=== PATIENT | female | born 1950 | race Caucasian/White ===

== ENCOUNTER 2018-03-24 12:34 | Emergency (ER) | payer OTHER ==
[~2018-03-24] VITALS: Ht 175.3 cm; Wt 90.7 kg
[~2018-03-24 12:34] MED LIST: METF-370 PO
[2018-03-24 14:05] LABS: Basophils # (auto) 0.1 uL; Eosinophils # (auto) 0.2 uL; Eosinophils % (auto) 3.4 % (0.0-7.0); Lymphocytes # (auto) 1.6 uL; Lymphocytes % (auto) 25.3 % (10.0-50.0); Mean Corpuscular Hemoglobin 28.4 pg (28.0-32.0); Mean Corpuscular Hgb Conc. 34.1 g/dL (32.0-36.0); Mean Corpuscular Volume 83.2 fL (80.0-100.0); Monocytes # (auto) 0.4 uL; Monocytes % (auto) 6.3 % (0.0-12.0); Nucleated Red Blood Cells % 0.1 %; Red Blood Cells 4.57 10^6/uL (4.0-5.20); Red Cell Distribution Width 13.2 % (11.8-14.3); White Blood Cell 6.2 10^3/uL (4.4-10.8)
[2018-03-24 14:34] LABS: INR 0.93 (0.9-1.15); Partial Thromboplastin Time 24.7 sec (23.78-33.04)
[2018-03-24 15:20] LABS: Platelet Count (auto) 111 10^3/uL (140-450)
[2018-03-24 17:34] VITALS: BP 134/77
== END 2018-03-24 17:35 | disposition home or self-care (01) ==
LOC: EDBD 12:34 → ER 12:34
DX: R04.0 Epistaxis (principal); E11.9 Type 2 diabetes mellitus without complications; E78.5 Hyperlipidemia, unspecified; I10 Essential (primary) hypertension; Z88.1 Allergy status to other antibiotic agents; Z88.0 Allergy status to penicillin; Z88.6 Allergy status to analgesic agent; Z90.49 Acquired absence of other specified parts of digestive tract
CPT/HCPCS: 36415; 70486; 85025; 85610; 85730

== ENCOUNTER 2020-12-13 18:10 | Inpatient (IN) | payer OTHER ==
[~2020-12-13] VITALS: Ht 165.1 cm; Wt 92.2 kg
[2020-12-13 19:41] LABS: Albumin 3.3 g/dL (3.4-5.0); Anion Gap 8 (5-15); Blood Urea Nitrogen 21 mg/dL (7-18); Calcium 9.2 mg/dL (8.5-10.1); Carbon Dioxide 26 mmol/L (21-32); Chloride 104 mmol/L (98-107); Glucose 191 mg/dL (74-106); Potassium 3.5 mmol/L (3.5-5.1); Sodium 138 mmol/L (136-145)
[2020-12-13 19:43] LABS: INR 1.01 (0.9-1.15)
[2020-12-13 19:49] LABS: Alanine Aminotransferase 25 U/L (13-56); Alkaline Phosphatase 103 U/L (45-117); Aspartate Aminotransferase 15 U/L (15-37); Bilirubin, Total 0.8 mg/dL (0.2-1.0); GFR African American 67 mL/min; GFR Non-African American 55 mL/min; Total Protein 7.4 g/dL (6.4-8.2)
[2020-12-13] MEDS ORDERED: ASPirin 325 MG TAB PO ONE (20:45)
[2020-12-13 21:08] LABS: Basophils # (auto) 0.1 10 ^3/uL (0-0.2); Basophils % (auto) 1.2 % (0.0-2.0); Eosinophils # (auto) 0.2 10 ^3/uL (0-0.8); Eosinophils % (auto) 2.6 % (0.0-7.0); Hematocrit 37.7 % (36.0-46.0); Hemoglobin 13.1 g/dL (12.2-16.2); Lymphocytes # (auto) 2.1 10 ^3/uL (0.4-5.4); Lymphocytes % (auto) 30.4 % (10.0-50.0); Mean Corpuscular Hemoglobin 28.6 pg (28.0-32.0); Mean Corpuscular Hgb Conc. 34.7 g/dL (32.0-36.0); Mean Corpuscular Volume 82.4 fL (80.0-100.0); Monocytes # (auto) 0.5 10 ^3/uL (0-1.3); Monocytes % (auto) 7.5 % (0.0-12.0); Neutrophils # (auto) 4.1 10 ^3/uL (1.6-8.6); Neutrophils % (auto) 58.3 % (37.0-80.0); Nucleated Red Blood Cells % 0.1 %; Platelet Count (auto) 123 10^3/uL (140-450); Red Blood Cells 4.58 10^6/uL (4.0-5.20); Red Cell Distribution Width 13.3 % (11.8-14.3); White Blood Cell 7.1 10^3/uL (4.4-10.8)
[2020-12-13] MEDS ORDERED: ACETAMINOPHEN 325 MG TAB PO PRN (21:15)
[2020-12-13] MEDS ORDERED: ONDANSETRON HCL 4 MG/2 ML VIAL IV PRN (21:15)
[2020-12-13] MEDS ORDERED: TEMAZEPAM 15 MG CAP PO PRN (21:15)
[2020-12-13] MEDS ORDERED: DEXTROSE (50%) 50ML SYRG IV PRN (21:15)
[2020-12-13 22:00] VITALS: BP 141/85
[2020-12-13 22:26] LABS: Urine Bacteria NONE SEEN /hpf (None Seen); Urine Blood Negative /uL (Negative); Urine Hyaline Cast FEW /lpf (0 - 2); Urine Mucus FEW (None Seen); Urine Specific Gravity 1.026 (1.001-1.035); Urine WBC 51 /hpf (0 - 5)
[2020-12-13] MEDS: ATORVASTATIN 20 MG TAB PO SCH (22:49)
[2020-12-13] MEDS: ACCU-CHEK COMFORT CURVE STRIP VI SCH (22:50)
[2020-12-13] MEDS: InsuLIN REG 1unit/0.01ml Soln (100units/ml) SC SCH (22:50)
[2020-12-14 01:00] VITALS: BP 141/85
[2020-12-14] MEDS ORDERED: SERT-376 PO (01:18)
[2020-12-14] MEDS ORDERED: GABA100C9 PO (01:18)
[2020-12-14 05:00] VITALS: BP 110/74
[2020-12-14 05:39] LABS: Basophils # (auto) 0.1 10 ^3/uL (0-0.2); Eosinophils # (auto) 0.2 10 ^3/uL (0-0.8); Eosinophils % (auto) 3.5 % (0.0-7.0); Hematocrit 36.8 % (36.0-46.0); Hemoglobin 12.6 g/dL (12.2-16.2); Lymphocytes # (auto) 2.2 10 ^3/uL (0.4-5.4); Lymphocytes % (auto) 37.6 % (10.0-50.0); Mean Corpuscular Hemoglobin 28.2 pg (28.0-32.0); Mean Corpuscular Hgb Conc. 34.1 g/dL (32.0-36.0); Mean Corpuscular Volume 82.5 fL (80.0-100.0); Monocytes # (auto) 0.5 10 ^3/uL (0-1.3); Monocytes % (auto) 8.3 % (0.0-12.0); Neutrophils # (auto) 2.9 10 ^3/uL (1.6-8.6); Neutrophils % (auto) 49.6 % (37.0-80.0); Platelet Count (auto) 114 10^3/uL (140-450); Red Blood Cells 4.46 10^6/uL (4.0-5.20); Red Cell Distribution Width 13.1 % (11.8-14.3); White Blood Cell 5.9 10^3/uL (4.4-10.8)
[2020-12-14 06:20] LABS: BUN/Creatinine Ratio 30.1; Calcium 8.9 mg/dL (8.5-10.1); Potassium 3.5 mmol/L (3.5-5.1)
[2020-12-14] MEDS: ACCU-CHEK COMFORT CURVE STRIP VI SCH ×4 (06:36→22:11)
[2020-12-14] MEDS: InsuLIN REG 1unit/0.01ml Soln (100units/ml) SC SCH ×4 (06:40→23:20)
[2020-12-14 09:00] VITALS: BP 146/81
[2020-12-14] MEDS ORDERED: GABA300C10 PO (09:07)
[2020-12-14] MEDS ORDERED: SERT-160 PO (09:07)
[2020-12-14] MEDS ORDERED: metFORMIN HYDROCHLORIDE 500 MG TAB PO ONE (09:15)
[2020-12-14] MEDS: SERTRALINE HCL 50 MG TAB PO SCH (09:31)
[2020-12-14] MEDS: ENOXAPARIN SOD 40 MG/0.4 ML SYRINGE SC SCH (09:31)
[2020-12-14 13:00] VITALS: BP 139/70
[2020-12-14] MEDS: GABAPENTIN 300 MG CAP PO SCH ×2 (14:18→22:10)
[2020-12-14 17:00] VITALS: BP 143/73
[2020-12-14] MEDS: metFORMIN HYDROCHLORIDE 500 MG TAB PO SCH (17:48)
[2020-12-14 21:12] LABS: Cholesterol 218 mg/dL (< 200)
[2020-12-14 21:15] LABS: HDL Cholesterol 45 mg/dL (40-59); LDL Cholesterol 139 mg/dL (< 100); Triglycerides 204 mg/dL (< 150)
[2020-12-14 22:00] VITALS: BP 138/73
[2020-12-14] MEDS ORDERED: ASPirin 81 mg TAB PO SCH (22:00)
[2020-12-14] MEDS: ATORVASTATIN 20 MG TAB PO SCH (22:10)
[2020-12-15 05:00] VITALS: BP 140/75
[2020-12-15 06:23] LABS: Cholesterol 216 mg/dL (< 200); HDL Cholesterol 47 mg/dL (40-59); LDL Cholesterol 135 mg/dL (< 100); Triglycerides 174 mg/dL (< 150)
[2020-12-15] MEDS: GABAPENTIN 300 MG CAP PO SCH ×3 (06:54→21:28)
[2020-12-15] MEDS: ACCU-CHEK COMFORT CURVE STRIP VI SCH ×4 (06:54→21:28)
[2020-12-15] MEDS: InsuLIN REG 1unit/0.01ml Soln (100units/ml) SC SCH ×4 (06:59→22:00)
[2020-12-15] MEDS: metFORMIN HYDROCHLORIDE 500 MG TAB PO SCH ×2 (08:00→18:42)
[2020-12-15 09:00] VITALS: BP_SYST 112; BP_SYST 143; BP_DIAS 69; BP_DIAS 83
[2020-12-15] MEDS: LISINOPRIL 5 MG TAB PO SCH (09:36)
[2020-12-15] MEDS: ENOXAPARIN SOD 40 MG/0.4 ML SYRINGE SC SCH (09:37)
[2020-12-15] MEDS: SERTRALINE HCL 50 MG TAB PO SCH (09:37)
[2020-12-15 12:58] VITALS: BP 145/79
[2020-12-15 16:39] VITALS: BP 119/84
[2020-12-15] MEDS: ATORVASTATIN 20 MG TAB PO SCH (21:28)
[2020-12-15 22:00] VITALS: BP 126/76
[2020-12-16 05:00] VITALS: BP 148/83
[2020-12-16] MEDS: ACCU-CHEK COMFORT CURVE STRIP VI SCH ×3 (05:53→16:27)
[2020-12-16] MEDS: GABAPENTIN 300 MG CAP PO SCH ×2 (05:54→14:00)
[2020-12-16] MEDS: InsuLIN REG 1unit/0.01ml Soln (100units/ml) SC SCH ×3 (06:12→16:26)
[2020-12-16] MEDS: metFORMIN HYDROCHLORIDE 500 MG TAB PO SCH ×2 (08:00→18:26)
[2020-12-16 09:00] VITALS: BP 110/66
[2020-12-16] MEDS: LISINOPRIL 5 MG TAB PO SCH (09:36)
[2020-12-16] MEDS: ENOXAPARIN SOD 40 MG/0.4 ML SYRINGE SC SCH (09:37)
[2020-12-16] MEDS ORDERED: SERTRALINE HCL 50 MG TAB PO SCH (10:00)
[2020-12-16 13:00] VITALS: BP 110/68
[2020-12-16 17:00] VITALS: BP 124/64
== END 2020-12-16 21:43 | disposition home or self-care (01) | DRG 69 ==
LOC: EDBD 18:10 → ER 18:23 → OVERFLOW 21:14 → WEST WING 21:54 → TELE-WESTW 12-16 17:35
PROVIDERS: ADMIT Nurse Practitioner; ATTEND Internal Medicine Geriatric Medicine
DX: G45.9 Transient cerebral ischemic attack, unspecified (principal); E44.0 Moderate protein-calorie malnutrition; N39.0 Urinary tract infection, site not specified; G40.89 Other seizures; R20.2 Paresthesia of skin; N18.9 Chronic kidney disease, unspecified; E78.5 Hyperlipidemia, unspecified; E11.22 Type 2 diabetes mellitus with diabetic chronic kidney disease; Z20.822 Contact with and (suspected) exposure to COVID-19; E11.40 Type 2 diabetes mellitus with diabetic neuropathy, unspecified; Z68.33 Body mass index [BMI] 33.0-33.9, adult; F40.240 Claustrophobia; I12.9 Hypertensive chronic kidney disease with stage 1 through stage 4 chronic kidney disease, or unspecified chronic kidney disease; Z79.82 Long term (current) use of aspirin; Z79.899 Other long term (current) drug therapy; Z83.3 Family history of diabetes mellitus; Z90.49 Acquired absence of other specified parts of digestive tract; Z88.8 Allergy status to other drugs, medicaments and biological substances; Z88.0 Allergy status to penicillin; Z88.6 Allergy status to analgesic agent
CPT/HCPCS: 36415; 70450; 71045; 80048; 80053; 80061; 81001; 82962; 83036; 83605; 83735; 83880; 84443; 84484; 85025; 85610; 87426; 93005; 93306; 93886; 95819; 97163; G0378; J1815

== ENCOUNTER 2021-08-07 16:40 | Emergency (ER) | payer OTHER ==
[~2021-08-07] VITALS: Ht 167.6 cm; Wt 86.2 kg
[2021-08-07 16:40] VITALS: BP 158/94
[~2021-08-07 16:40] MED LIST changes: +GABA300C10 PO; +SERT-160 PO
[2021-08-07] MEDS ORDERED: MORPHINE SULFATE 4 MG/ML SYR/VIAL IV ONE (19:15)
[2021-08-07 21:38] LABS: Basophils # (auto) 0 10 ^3/uL (0-0.2); Basophils % (auto) 0.3 % (0.0-2.0); Eosinophils # (auto) 0 10 ^3/uL (0-0.8); Eosinophils % (auto) 0.1 % (0.0-7.0); Hematocrit 37.7 % (36.0-46.0); Lymphocytes # (auto) 0.5 10 ^3/uL (0.4-5.4); Lymphocytes % (auto) 19.7 % (10.0-50.0); Mean Corpuscular Hemoglobin 27.6 pg (28.0-32.0); Mean Corpuscular Hgb Conc. 34.4 g/dL (32.0-36.0); Mean Corpuscular Volume 80.3 fL (80.0-100.0); Monocytes # (auto) 0.2 10 ^3/uL (0-1.3); Monocytes % (auto) 9.1 % (0.0-12.0); Neutrophils # (auto) 1.8 10 ^3/uL (1.6-8.6); Neutrophils % (auto) 70.8 % (37.0-80.0); Nucleated Red Blood Cells % 0.1 %; Red Cell Distribution Width 13.6 % (11.8-14.3); White Blood Cell 2.5 10^3/uL (4.4-10.8)
[2021-08-07 21:54] LABS: Albumin 3.5 g/dL (3.4-5.0); Calcium 8.2 mg/dL (8.5-10.1); Magnesium 2.9 mg/dL (1.6-2.6); Potassium 3.5 mmol/L (3.5-5.1)
[2021-08-07 21:59] LABS: BUN/Creatinine Ratio 24.2; Bilirubin, Total 0.9 mg/dL (0.2-1.0); Total Protein 7.4 g/dL (6.4-8.2)
[2021-08-07] MEDS ORDERED: VANCOMYCIN 1,500 MG in D5W 5% 250 ML IV STA (22:23)
[2021-08-07] MEDS ORDERED: CALCIUM GLUC 1,000mg/50ml-NS 50 ML IV ONE ×2 (22:30)
== END 2021-08-07 22:30 | disposition left against medical advice (07) ==
LOC: ER 16:40 → EDBD 16:40 → ER 22:30
DX: A41.9 Sepsis, unspecified organism (principal); J18.9 Pneumonia, unspecified organism; M54.50 Low back pain, unspecified; E11.9 Type 2 diabetes mellitus without complications; I10 Essential (primary) hypertension; E78.5 Hyperlipidemia, unspecified; Z90.49 Acquired absence of other specified parts of digestive tract; Z79.899 Other long term (current) drug therapy; Z88.0 Allergy status to penicillin; Z88.5 Allergy status to narcotic agent; Z88.1 Allergy status to other antibiotic agents; Z88.8 Allergy status to other drugs, medicaments and biological substances; W01.0XXA Fall on same level from slipping, tripping and stumbling without subsequent striking against object, initial encounter; Y93.89 Activity, other specified; Y92.89 Other specified places as the place of occurrence of the external cause; Y99.8 Other external cause status
CPT/HCPCS: 36415; 71045; 72131; 80053; 83735; 85025; 93005; J7060

== ENCOUNTER 2021-08-08 04:40 | Emergency (ER) | payer OTHER ==
[~2021-08-08] VITALS: Ht 160 cm; Wt 86.2 kg
[2021-08-08 07:44] LABS: Basophils # (auto) 0 10 ^3/uL (0-0.2); Basophils % (auto) 0.4 % (0.0-2.0); Eosinophils # (auto) 0 10 ^3/uL (0-0.8); Hematocrit 35.6 % (36.0-46.0); Hemoglobin 12.1 g/dL (12.2-16.2); Lymphocytes # (auto) 0.7 10 ^3/uL (0.4-5.4); Lymphocytes % (auto) 20.2 % (10.0-50.0); Mean Corpuscular Hemoglobin 27.3 pg (28.0-32.0); Mean Corpuscular Hgb Conc. 34.1 g/dL (32.0-36.0); Mean Corpuscular Volume 80.1 fL (80.0-100.0); Monocytes # (auto) 0.3 10 ^3/uL (0-1.3); Monocytes % (auto) 8.5 % (0.0-12.0); Neutrophils # (auto) 2.4 10 ^3/uL (1.6-8.6); Neutrophils % (auto) 70.9 % (37.0-80.0); Nucleated Red Blood Cells % 0.2 %; Red Blood Cells 4.44 10^6/uL (4.0-5.20); Red Cell Distribution Width 13.7 % (11.8-14.3); White Blood Cell 3.4 10^3/uL (4.4-10.8)
[2021-08-08 07:56] LABS: Urine Bacteria NONE SEEN /hpf (None Seen); Urine Blood Negative /uL (Negative); Urine Mucus FEW (None Seen); Urine Specific Gravity 1.028 (1.001-1.035); Urine WBC 6 /hpf (0 - 5)
[2021-08-08 08:00] LABS: Albumin 3.2 g/dL (3.4-5.0); Calcium 8.1 mg/dL (8.5-10.1); Potassium 3.8 mmol/L (3.5-5.1)
[2021-08-08 08:06] LABS: BUN/Creatinine Ratio 26.5; Bilirubin, Total 0.9 mg/dL (0.2-1.0); Total Protein 6.9 g/dL (6.4-8.2)
[2021-08-08 11:38] VITALS: BP 143/89
== END 2021-08-08 11:49 ==
LOC: EDBD 04:40 → ER 04:40
DX: U07.1 COVID-19 (principal); I10 Essential (primary) hypertension; E11.9 Type 2 diabetes mellitus without complications; E78.5 Hyperlipidemia, unspecified; Z90.49 Acquired absence of other specified parts of digestive tract; Z90.89 Acquired absence of other organs; Z79.899 Other long term (current) drug therapy; Z88.0 Allergy status to penicillin; Z88.1 Allergy status to other antibiotic agents; Z88.5 Allergy status to narcotic agent; Z88.8 Allergy status to other drugs, medicaments and biological substances
CPT/HCPCS: 36415; 71045; 72100; 80053; 81001; 83605; 85025; 87040; 87426

== ENCOUNTER 2021-08-11 13:22 | Inpatient (IN) | payer OTHER ==
[~2021-08-11] VITALS: Ht 172.7 cm; Wt 91.4 kg
[2021-08-11 14:53] LABS: Basophils # (auto) 0 10 ^3/uL (0-0.2); Basophils % (auto) 0.2 % (0.0-2.0); Eosinophils # (auto) 0 10 ^3/uL (0-0.8); Hematocrit 35.6 % (36.0-46.0); Lymphocytes # (auto) 0.6 10 ^3/uL (0.4-5.4); Lymphocytes % (auto) 14.7 % (10.0-50.0); Mean Corpuscular Hemoglobin 27.3 pg (28.0-32.0); Mean Corpuscular Hgb Conc. 33.8 g/dL (32.0-36.0); Mean Corpuscular Volume 80.7 fL (80.0-100.0); Monocytes # (auto) 0.3 10 ^3/uL (0-1.3); Monocytes % (auto) 6.5 % (0.0-12.0); Neutrophils # (auto) 3.2 10 ^3/uL (1.6-8.6); Neutrophils % (auto) 78.6 % (37.0-80.0); Red Blood Cells 4.41 10^6/uL (4.0-5.20); Red Cell Distribution Width 13.2 % (11.8-14.3); White Blood Cell 4.1 10^3/uL (4.4-10.8)
[2021-08-11 15:00] LABS: Albumin 2.7 g/dL (3.4-5.0); Calcium 8.1 mg/dL (8.5-10.1); Potassium 3.6 mmol/L (3.5-5.1)
[2021-08-11 15:07] LABS: BUN/Creatinine Ratio 36.9; Bilirubin, Total 0.9 mg/dL (0.2-1.0); Total Protein 7.2 g/dL (6.4-8.2)
[2021-08-11 18:06] LABS: Urine Bacteria MOD /hpf (None Seen); Urine Blood Negative /uL (Negative); Urine Mucus FEW (None Seen); Urine Specific Gravity 1.028 (1.001-1.035); Urine WBC 3 /hpf (0 - 5)
[2021-08-12] MEDS ORDERED: ONDANSETRON HCL 4 MG/2 ML VIAL IV PRN (01:15)
[2021-08-12] MEDS ORDERED: DEXTROSE (50%) 50ML SYRG IV PRN (01:15)
[2021-08-12] MEDS ORDERED: NITROGLYCERIN 0.4 MG SL TAB SL PRN (01:15)
[2021-08-12] MEDS ORDERED: ACETAMINOPHEN 325 MG TAB PO PRN (01:15)
[2021-08-12] MEDS ORDERED: HYDROcodone-ACET 5/325MG TAB PO PRN (01:15)
[2021-08-12] MEDS ORDERED: DOCUSATE SOD 100 MG CAP PO PRN (01:15)
[2021-08-12] MEDS ORDERED: levoFLOXacin 750MG 150 ML IV SCH (02:00)
[2021-08-12] MEDS: SODIUM CHLORIDE 0.9% 1,000 ML IV SCH ×2 (02:08→18:15)
[2021-08-12 03:15] VITALS: BP 138/75
[2021-08-12] MEDS: DOXYCYCLINE 100MG/250ML 250 ML IV SCH ×2 (04:05→16:00)
[2021-08-12 05:00] VITALS: BP 138/75
[2021-08-12] MEDS: InsuLIN REG 1unit/0.01ml Soln (100units/ml) SC SCH ×4 (06:40→22:00)
[2021-08-12] MEDS: ACCU-CHEK COMFORT CURVE STRIP VI SCH ×4 (06:44→22:39)
[2021-08-12 09:00] VITALS: BP 128/73
[2021-08-12] MEDS: ENOXAPARIN SOD 40 MG/0.4 ML SYRINGE SC SCH ×2 (10:00→10:52)
[2021-08-12] MEDS: FAMOTIDINE (10MG/ML) 2ML VL IV SCH (10:50)
[2021-08-12] MEDS: ZINC SULFATE 220mg CAP or TAB PO SCH (10:51)
[2021-08-12] MEDS: MULTIPLE VITAMIN TAB PO SCH (10:51)
[2021-08-12] MEDS: ASCORBIC ACID 500 MG TAB PO SCH ×2 (10:51→22:39)
[2021-08-12] MEDS: ASPirin 81 mg TAB PO SCH (10:51)
[2021-08-12] MEDS: CHOLECALCIFEROL (VITD3) 1,000UNIT=25mCg TAB PO SCH (10:52)
[2021-08-12 13:00] VITALS: BP 155/71
[2021-08-12 13:23] LABS: Basophils # (auto) 0 10 ^3/uL (0-0.2); Basophils % (auto) 1.1 % (0.0-2.0); Eosinophils # (auto) 0 10 ^3/uL (0-0.8); Eosinophils % (auto) 0.9 % (0.0-7.0); Hematocrit 32.6 % (36.0-46.0); Hemoglobin 11.2 g/dL (12.2-16.2); Lymphocytes # (auto) 0.6 10 ^3/uL (0.4-5.4); Lymphocytes % (auto) 16.1 % (10.0-50.0); Mean Corpuscular Hemoglobin 27.4 pg (28.0-32.0); Mean Corpuscular Hgb Conc. 34.5 g/dL (32.0-36.0); Mean Corpuscular Volume 79.6 fL (80.0-100.0); Monocytes # (auto) 0.3 10 ^3/uL (0-1.3); Monocytes % (auto) 7.4 % (0.0-12.0); Neutrophils # (auto) 2.9 10 ^3/uL (1.6-8.6); Neutrophils % (auto) 74.5 % (37.0-80.0); Red Blood Cells 4.09 10^6/uL (4.0-5.20); Red Cell Distribution Width 13.4 % (11.8-14.3); White Blood Cell 3.9 10^3/uL (4.4-10.8)
[2021-08-12 13:41] LABS: Albumin 2.4 g/dL (3.4-5.0); Calcium 7.7 mg/dL (8.5-10.1); Potassium 3.4 mmol/L (3.5-5.1)
[2021-08-12 13:46] LABS: BUN/Creatinine Ratio 40.9; Total Protein 6.1 g/dL (6.4-8.2)
[2021-08-12 17:00] VITALS: BP 128/68
[2021-08-12] MEDS: GABAPENTIN 300 MG CAP PO SCH (18:49)
[2021-08-12] MEDS: SERTRALINE HCL 50 MG TAB PO SCH (18:50)
[2021-08-12 22:00] VITALS: BP 124/69
[2021-08-12] MEDS ORDERED: GABAPENTIN 300 MG CAP PO SCH (22:00)
[2021-08-13] MEDS: levoFLOXacin 750MG 150 ML IV SCH (01:07)
[2021-08-13] MEDS: DOXYCYCLINE 100MG/250ML 250 ML IV SCH ×2 (04:00→14:55)
[2021-08-13 05:00] VITALS: BP 108/64
[2021-08-13] MEDS: GABAPENTIN 300 MG CAP PO SCH ×3 (06:00→21:13)
[2021-08-13] MEDS: ACCU-CHEK COMFORT CURVE STRIP VI SCH ×4 (07:00→21:14)
[2021-08-13] MEDS: InsuLIN REG 1unit/0.01ml Soln (100units/ml) SC SCH ×4 (07:15→21:15)
[2021-08-13 08:45] VITALS: BP 125/69
[2021-08-13 09:06] LABS: Basophils # (auto) 0 10 ^3/uL (0-0.2); Basophils % (auto) 0.7 % (0.0-2.0); Eosinophils # (auto) 0.1 10 ^3/uL (0-0.8); Eosinophils % (auto) 1.8 % (0.0-7.0); Hematocrit 34.6 % (36.0-46.0); Hemoglobin 11.7 g/dL (12.2-16.2); Lymphocytes # (auto) 0.8 10 ^3/uL (0.4-5.4); Lymphocytes % (auto) 17.3 % (10.0-50.0); Mean Corpuscular Hemoglobin 27.3 pg (28.0-32.0); Mean Corpuscular Hgb Conc. 33.9 g/dL (32.0-36.0); Mean Corpuscular Volume 80.5 fL (80.0-100.0); Monocytes # (auto) 0.3 10 ^3/uL (0-1.3); Monocytes % (auto) 7.9 % (0.0-12.0); Neutrophils # (auto) 3.1 10 ^3/uL (1.6-8.6); Neutrophils % (auto) 72.3 % (37.0-80.0); Nucleated Red Blood Cells % 0.1 %; Red Cell Distribution Width 13.5 % (11.8-14.3); White Blood Cell 4.3 10^3/uL (4.4-10.8)
[2021-08-13 09:30] LABS: Albumin 2.4 g/dL (3.4-5.0); Calcium 7.9 mg/dL (8.5-10.1); Potassium 3.5 mmol/L (3.5-5.1)
[2021-08-13] MEDS: ASPirin 81 mg TAB PO SCH (09:33)
[2021-08-13] MEDS: FAMOTIDINE (10MG/ML) 2ML VL IV SCH (09:33)
[2021-08-13 09:34] LABS: BUN/Creatinine Ratio 25.3; Bilirubin, Total 1.1 mg/dL (0.2-1.0); Total Protein 6.3 g/dL (6.4-8.2)
[2021-08-13] MEDS: ASCORBIC ACID 500 MG TAB PO SCH ×2 (09:34→21:13)
[2021-08-13] MEDS: ZINC SULFATE 220mg CAP or TAB PO SCH (09:34)
[2021-08-13] MEDS: MULTIPLE VITAMIN TAB PO SCH (09:34)
[2021-08-13] MEDS: CHOLECALCIFEROL (VITD3) 1,000UNIT=25mCg TAB PO SCH (09:34)
[2021-08-13] MEDS: ENOXAPARIN SOD 40 MG/0.4 ML SYRINGE SC SCH (09:34)
[2021-08-13] MEDS ORDERED: SERTRALINE HCL 50 MG TAB PO SCH (10:00)
[2021-08-13] MEDS ORDERED: DexAMETHasone 4 MG TAB PO ONE (10:30)
[2021-08-13] MEDS ORDERED: metFORMIN HYDROCHLORIDE 500 MG TAB PO ONE (10:30)
[2021-08-13] MEDS: SODIUM CHLORIDE 0.9% 1,000 ML IV SCH (10:35)
[2021-08-13 13:00] VITALS: BP 114/59
[2021-08-13 17:00] VITALS: BP 132/72
[2021-08-13] MEDS: metFORMIN HYDROCHLORIDE 500 MG TAB PO SCH (17:51)
[2021-08-13] MEDS: SERTRALINE HCL 50 MG TAB PO SCH (21:13)
[2021-08-13 22:00] VITALS: BP 113/74
[2021-08-14] MEDS: levoFLOXacin 750MG 150 ML IV SCH (01:00)
[2021-08-14] MEDS: SODIUM CHLORIDE 0.9% 1,000 ML IV SCH (03:15)
[2021-08-14] MEDS: DOXYCYCLINE 100MG/250ML 250 ML IV SCH ×2 (04:14→15:56)
[2021-08-14 05:00] VITALS: BP 116/62
[2021-08-14] MEDS: InsuLIN REG 1unit/0.01ml Soln (100units/ml) SC SCH ×4 (06:14→22:00)
[2021-08-14] MEDS: GABAPENTIN 300 MG CAP PO SCH ×3 (06:22→22:10)
[2021-08-14] MEDS: ACCU-CHEK COMFORT CURVE STRIP VI SCH ×4 (06:26→22:00)
[2021-08-14 06:27] LABS: Basophils # (auto) 0 10 ^3/uL (0-0.2); Basophils % (auto) 0.4 % (0.0-2.0); Eosinophils # (auto) 0.1 10 ^3/uL (0-0.8); Lymphocytes # (auto) 0.9 10 ^3/uL (0.4-5.4); Lymphocytes % (auto) 18.1 % (10.0-50.0); Monocytes # (auto) 0.4 10 ^3/uL (0-1.3); Neutrophils # (auto) 3.4 10 ^3/uL (1.6-8.6); Nucleated Red Blood Cells % 0.1 %; Red Cell Distribution Width 13.4 % (11.8-14.3)
[2021-08-14 06:32] LABS: Eosinophils % (auto) 1.8 % (0.0-7.0); Hemoglobin 11.6 g/dL (12.2-16.2); Mean Corpuscular Hemoglobin 28.3 pg (28.0-32.0); Mean Corpuscular Hgb Conc. 35.3 g/dL (32.0-36.0); Mean Corpuscular Volume 80.1 fL (80.0-100.0); Monocytes % (auto) 8.5 % (0.0-12.0); Neutrophils % (auto) 71.2 % (37.0-80.0); Red Blood Cells 4.12 10^6/uL (4.0-5.20); White Blood Cell 4.8 10^3/uL (4.4-10.8)
[2021-08-14 06:46] LABS: BUN/Creatinine Ratio 38.2; Calcium 8.3 mg/dL (8.5-10.1); Magnesium 3.2 mg/dL (1.6-2.6); Potassium 3.8 mmol/L (3.5-5.1)
[2021-08-14 08:00] VITALS: BP 118/71
[2021-08-14] MEDS: metFORMIN HYDROCHLORIDE 500 MG TAB PO SCH ×2 (08:44→17:21)
[2021-08-14] MEDS: FAMOTIDINE (10MG/ML) 2ML VL IV SCH (08:45)
[2021-08-14] MEDS: ASPirin 81 mg TAB PO SCH (08:45)
[2021-08-14] MEDS: ZINC SULFATE 220mg CAP or TAB PO SCH (08:46)
[2021-08-14] MEDS: DexAMETHasone 4 MG TAB PO SCH (08:46)
[2021-08-14] MEDS: MULTIPLE VITAMIN TAB PO SCH (08:47)
[2021-08-14] MEDS: ASCORBIC ACID 500 MG TAB PO SCH ×2 (08:47→22:10)
[2021-08-14] MEDS: CHOLECALCIFEROL (VITD3) 1,000UNIT=25mCg TAB PO SCH (08:48)
[2021-08-14] MEDS: ENOXAPARIN SOD 40 MG/0.4 ML SYRINGE SC SCH (08:55)
[2021-08-14 09:08] VITALS: BP 118/71
[2021-08-14 13:00] VITALS: BP 114/62
[2021-08-14 16:39] VITALS: BP 131/70
[2021-08-14] MEDS: Glucerna Carbsteady SHAKE Vanilla 8oz PO SCH (18:26)
[2021-08-14 22:00] VITALS: BP 122/69
[2021-08-14] MEDS: SERTRALINE HCL 50 MG TAB PO SCH (22:10)
[2021-08-15] VITALS (7 sets, daily range): BP systolic 108–125; BP diastolic 64–78
[2021-08-15] MEDS: SODIUM CHLORIDE 0.9% 1,000 ML IV SCH ×2 (00:22→13:26)
[2021-08-15] MEDS: levoFLOXacin 750MG 150 ML IV SCH (00:26)
[2021-08-15] MEDS: DOXYCYCLINE 100MG/250ML 250 ML IV SCH (03:31)
[2021-08-15] MEDS: GABAPENTIN 300 MG CAP PO SCH ×3 (05:32→22:24)
[2021-08-15] MEDS: ACCU-CHEK COMFORT CURVE STRIP VI SCH ×4 (06:11→22:28)
[2021-08-15] MEDS: InsuLIN REG 1unit/0.01ml Soln (100units/ml) SC SCH ×4 (06:11→22:27)
[2021-08-15] MEDS: metFORMIN HYDROCHLORIDE 500 MG TAB PO SCH ×2 (07:52→16:56)
[2021-08-15] MEDS: ASCORBIC ACID 500 MG TAB PO SCH ×2 (07:53→22:25)
[2021-08-15] MEDS: MULTIPLE VITAMIN TAB PO SCH (07:53)
[2021-08-15] MEDS: CHOLECALCIFEROL (VITD3) 1,000UNIT=25mCg TAB PO SCH (07:53)
[2021-08-15] MEDS: DexAMETHasone 4 MG TAB PO SCH (07:53)
[2021-08-15] MEDS: ZINC SULFATE 220mg CAP or TAB PO SCH (07:53)
[2021-08-15] MEDS: ASPirin 81 mg TAB PO SCH (07:53)
[2021-08-15] MEDS: ENOXAPARIN SOD 40 MG/0.4 ML SYRINGE SC SCH (08:06)
[2021-08-15] MEDS: Glucerna Carbsteady SHAKE Vanilla 8oz PO SCH ×3 (12:09→18:55)
[2021-08-15] MEDS: SERTRALINE HCL 50 MG TAB PO SCH (22:25)
[2021-08-16] MEDS: levoFLOXacin 750MG 150 ML IV SCH (01:20)
[2021-08-16] MEDS: SODIUM CHLORIDE 0.9% 1,000 ML IV SCH ×2 (01:21→23:42)
[2021-08-16 05:00] VITALS: BP 109/55
[2021-08-16 06:21] LABS: Hematocrit 33.7 % (36.0-46.0); Hemoglobin 11.6 g/dL (12.2-16.2); Mean Corpuscular Hemoglobin 27.7 pg (28.0-32.0); Mean Corpuscular Hgb Conc. 34.4 g/dL (32.0-36.0); Mean Corpuscular Volume 80.7 fL (80.0-100.0); Red Blood Cells 4.17 10^6/uL (4.0-5.20); Red Cell Distribution Width 13.7 % (11.8-14.3); White Blood Cell 6.5 10^3/uL (4.4-10.8)
[2021-08-16 06:24] LABS: Potassium 4.1 mmol/L (3.5-5.1)
[2021-08-16 06:28] LABS: Basophils % (manual) 0 (0.0-2.0); Blast Cells 0; Metamyelocytes % 0; Promyelocytes % 0; Reactive Lymphocytes 0
[2021-08-16] MEDS: ACCU-CHEK COMFORT CURVE STRIP VI SCH ×4 (06:30→22:16)
[2021-08-16] MEDS: InsuLIN REG 1unit/0.01ml Soln (100units/ml) SC SCH ×4 (06:32→22:19)
[2021-08-16 06:37] LABS: BUN/Creatinine Ratio 36.1; Calcium 8.6 mg/dL (8.5-10.1); Magnesium 1.7 mg/dL (1.6-2.6)
[2021-08-16] MEDS: GABAPENTIN 300 MG CAP PO SCH ×3 (06:47→22:15)
[2021-08-16 06:51] LABS: Band Neutrophils % (manual) 1; Eosinophils % (manual) 4 (0-7); Lymphocytes % (manual) 26 (10.0-50.0); Monocytes % (manual) 10 (0-12); Myelocytes % 5
[2021-08-16 08:00] VITALS: BP 116/65
[2021-08-16 09:00] VITALS: BP 116/65
[2021-08-16] MEDS: metFORMIN HYDROCHLORIDE 500 MG TAB PO SCH ×2 (09:00→18:40)
[2021-08-16] MEDS: Glucerna Carbsteady SHAKE Vanilla 8oz PO SCH ×3 (09:00→18:08)
[2021-08-16] MEDS: ASPirin 81 mg TAB PO SCH (09:32)
[2021-08-16] MEDS: ZINC SULFATE 220mg CAP or TAB PO SCH (09:32)
[2021-08-16] MEDS: CHOLECALCIFEROL (VITD3) 1,000UNIT=25mCg TAB PO SCH (09:33)
[2021-08-16] MEDS: DexAMETHasone 4 MG TAB PO SCH (09:33)
[2021-08-16] MEDS: MULTIPLE VITAMIN TAB PO SCH (09:33)
[2021-08-16] MEDS: ASCORBIC ACID 500 MG TAB PO SCH ×2 (09:33→22:15)
[2021-08-16] MEDS: ENOXAPARIN SOD 40 MG/0.4 ML SYRINGE SC SCH ×2 (09:34→09:36)
[2021-08-16 13:00] VITALS: BP 110/62
[2021-08-16 16:41] VITALS: BP 134/71
[2021-08-16 22:00] VITALS: BP 149/87
[2021-08-16] MEDS: SERTRALINE HCL 50 MG TAB PO SCH (22:15)
[2021-08-17] MEDS: levoFLOXacin 750MG 150 ML IV SCH (02:00)
[2021-08-17] MEDS: GABAPENTIN 300 MG CAP PO SCH ×3 (06:14→22:53)
[2021-08-17] MEDS: ACCU-CHEK COMFORT CURVE STRIP VI SCH ×4 (06:15→22:37)
[2021-08-17] MEDS: InsuLIN REG 1unit/0.01ml Soln (100units/ml) SC SCH ×4 (06:20→22:53)
[2021-08-17 08:00] VITALS: BP 106/60
[2021-08-17] MEDS: metFORMIN HYDROCHLORIDE 500 MG TAB PO SCH ×2 (08:00→18:12)
[2021-08-17] MEDS: Glucerna Carbsteady SHAKE Vanilla 8oz PO SCH ×3 (08:00→18:00)
[2021-08-17 09:00] VITALS: BP 106/60
[2021-08-17] MEDS: ASPirin 81 mg TAB PO SCH (11:41)
[2021-08-17] MEDS: MULTIPLE VITAMIN TAB PO SCH (11:42)
[2021-08-17] MEDS: CHOLECALCIFEROL (VITD3) 1,000UNIT=25mCg TAB PO SCH (11:42)
[2021-08-17] MEDS: ASCORBIC ACID 500 MG TAB PO SCH ×2 (11:42→22:53)
[2021-08-17] MEDS: DexAMETHasone 4 MG TAB PO SCH (11:42)
[2021-08-17] MEDS: ZINC SULFATE 220mg CAP or TAB PO SCH (11:42)
[2021-08-17] MEDS: ENOXAPARIN SOD 40 MG/0.4 ML SYRINGE SC SCH (11:42)
[2021-08-17 13:00] VITALS: BP 100/63
[2021-08-17] MEDS: SODIUM CHLORIDE 0.9% 1,000 ML IV SCH (15:35)
[2021-08-17 17:00] VITALS: BP 110/71
[2021-08-17 22:06] VITALS: BP 112/57
[2021-08-17 22:12] VITALS: BP 112/57
[2021-08-17] MEDS: SERTRALINE HCL 50 MG TAB PO SCH (22:53)
[2021-08-18 04:31] VITALS: BP 115/59
[2021-08-18] MEDS: InsuLIN REG 1unit/0.01ml Soln (100units/ml) SC SCH ×4 (06:18→23:00)
[2021-08-18] MEDS: GABAPENTIN 300 MG CAP PO SCH ×3 (06:18→22:15)
[2021-08-18] MEDS: ACCU-CHEK COMFORT CURVE STRIP VI SCH ×4 (06:18→22:15)
[2021-08-18] MEDS: SODIUM CHLORIDE 0.9% 1,000 ML IV SCH ×2 (07:57→23:55)
[2021-08-18] MEDS: Glucerna Carbsteady SHAKE Vanilla 8oz PO SCH ×3 (08:00→18:00)
[2021-08-18] MEDS: metFORMIN HYDROCHLORIDE 500 MG TAB PO SCH ×2 (08:00→18:00)
[2021-08-18 08:29] VITALS: BP 126/69
[2021-08-18] MEDS: MULTIPLE VITAMIN TAB PO SCH (08:57)
[2021-08-18] MEDS: ENOXAPARIN SOD 40 MG/0.4 ML SYRINGE SC SCH (08:57)
[2021-08-18] MEDS: ZINC SULFATE 220mg CAP or TAB PO SCH (08:57)
[2021-08-18] MEDS: ASPirin 81 mg TAB PO SCH (08:57)
[2021-08-18] MEDS: CHOLECALCIFEROL (VITD3) 1,000UNIT=25mCg TAB PO SCH (08:57)
[2021-08-18] MEDS: ASCORBIC ACID 500 MG TAB PO SCH ×2 (08:57→22:15)
[2021-08-18] MEDS: levoFLOXacin 500 MG TAB PO SCH (08:57)
[2021-08-18] MEDS: DexAMETHasone 4 MG TAB PO SCH (08:57)
[2021-08-18 11:45] VITALS: BP 121/67
[2021-08-18 16:48] VITALS: BP 100/41
[2021-08-18 22:00] VITALS: BP 126/68
[2021-08-18] MEDS: SERTRALINE HCL 50 MG TAB PO SCH (22:15)
[2021-08-19 05:00] VITALS: BP 103/44
[2021-08-19] MEDS: InsuLIN REG 1unit/0.01ml Soln (100units/ml) SC SCH ×4 (05:29→22:23)
[2021-08-19] MEDS: GABAPENTIN 300 MG CAP PO SCH ×3 (05:29→22:22)
[2021-08-19] MEDS: ACCU-CHEK COMFORT CURVE STRIP VI SCH ×4 (05:29→22:23)
[2021-08-19] MEDS: metFORMIN HYDROCHLORIDE 500 MG TAB PO SCH ×2 (08:00→18:00)
[2021-08-19] MEDS: Glucerna Carbsteady SHAKE Vanilla 8oz PO SCH ×3 (08:00→18:00)
[2021-08-19] MEDS: ASPirin 81 mg TAB PO SCH (08:44)
[2021-08-19] MEDS: levoFLOXacin 500 MG TAB PO SCH (08:44)
[2021-08-19] MEDS: ASCORBIC ACID 500 MG TAB PO SCH ×2 (08:44→22:22)
[2021-08-19] MEDS: DexAMETHasone 4 MG TAB PO SCH (08:44)
[2021-08-19] MEDS: MULTIPLE VITAMIN TAB PO SCH (08:44)
[2021-08-19] MEDS: ENOXAPARIN SOD 40 MG/0.4 ML SYRINGE SC SCH (08:44)
[2021-08-19] MEDS: ZINC SULFATE 220mg CAP or TAB PO SCH (08:44)
[2021-08-19] MEDS: CHOLECALCIFEROL (VITD3) 1,000UNIT=25mCg TAB PO SCH (08:44)
[2021-08-19 09:00] VITALS: BP 109/66
[2021-08-19 13:00] VITALS: BP 112/69
[2021-08-19] MEDS: SODIUM CHLORIDE 0.9% 1,000 ML IV SCH (15:28)
[2021-08-19 17:00] VITALS: BP 113/67
[2021-08-19 20:00] VITALS: BP 121/80
[2021-08-19 22:00] VITALS: BP 121/80
[2021-08-19] MEDS: SERTRALINE HCL 50 MG TAB PO SCH (22:22)
[2021-08-20 05:00] VITALS: BP 137/70
[2021-08-20] MEDS: GABAPENTIN 300 MG CAP PO SCH ×3 (05:59→22:17)
[2021-08-20] MEDS: ACCU-CHEK COMFORT CURVE STRIP VI SCH ×4 (06:57→22:17)
[2021-08-20] MEDS: InsuLIN REG 1unit/0.01ml Soln (100units/ml) SC SCH ×4 (06:58→22:18)
[2021-08-20] MEDS: metFORMIN HYDROCHLORIDE 500 MG TAB PO SCH ×2 (08:00→18:00)
[2021-08-20] MEDS: Glucerna Carbsteady SHAKE Vanilla 8oz PO SCH ×3 (08:00→18:00)
[2021-08-20 09:00] VITALS: BP 129/71
[2021-08-20] MEDS: SODIUM CHLORIDE 0.9% 1,000 ML IV SCH (09:15)
[2021-08-20] MEDS: ASCORBIC ACID 500 MG TAB PO SCH ×2 (10:00→22:17)
[2021-08-20] MEDS: ASPirin 81 mg TAB PO SCH (10:00)
[2021-08-20] MEDS: ENOXAPARIN SOD 40 MG/0.4 ML SYRINGE SC SCH (10:00)
[2021-08-20] MEDS: levoFLOXacin 500 MG TAB PO SCH (10:00)
[2021-08-20] MEDS: MULTIPLE VITAMIN TAB PO SCH (10:00)
[2021-08-20] MEDS: DexAMETHasone 4 MG TAB PO SCH (10:00)
[2021-08-20] MEDS: ZINC SULFATE 220mg CAP or TAB PO SCH (10:00)
[2021-08-20] MEDS: CHOLECALCIFEROL (VITD3) 1,000UNIT=25mCg TAB PO SCH (10:00)
[2021-08-20 13:00] VITALS: BP 91/52
[2021-08-20 17:00] VITALS: BP 116/69
[2021-08-20 21:41] VITALS: BP 130/78
[2021-08-20] MEDS: SERTRALINE HCL 50 MG TAB PO SCH (22:17)
[2021-08-21] MEDS: SODIUM CHLORIDE 0.9% 1,000 ML IV SCH ×2 (01:55→11:00)
[2021-08-21 05:40] VITALS: BP 135/79
[2021-08-21] MEDS: GABAPENTIN 300 MG CAP PO SCH ×3 (05:51→21:20)
[2021-08-21] MEDS: ACCU-CHEK COMFORT CURVE STRIP VI SCH ×4 (05:53→21:21)
[2021-08-21] MEDS: InsuLIN REG 1unit/0.01ml Soln (100units/ml) SC SCH ×4 (05:53→21:16)
[2021-08-21 09:00] VITALS: BP 128/72
[2021-08-21] MEDS: DexAMETHasone 4 MG TAB PO SCH (09:29)
[2021-08-21] MEDS: ASPirin 81 mg TAB PO SCH (09:29)
[2021-08-21] MEDS: metFORMIN HYDROCHLORIDE 500 MG TAB PO SCH ×2 (09:29→19:01)
[2021-08-21] MEDS: Glucerna Carbsteady SHAKE Vanilla 8oz PO SCH ×3 (09:29→19:00)
[2021-08-21] MEDS: ZINC SULFATE 220mg CAP or TAB PO SCH (09:29)
[2021-08-21] MEDS: MULTIPLE VITAMIN TAB PO SCH (09:30)
[2021-08-21] MEDS: ASCORBIC ACID 500 MG TAB PO SCH ×2 (09:30→21:20)
[2021-08-21] MEDS: ENOXAPARIN SOD 40 MG/0.4 ML SYRINGE SC SCH ×2 (09:30→10:00)
[2021-08-21] MEDS: CHOLECALCIFEROL (VITD3) 1,000UNIT=25mCg TAB PO SCH (09:30)
[2021-08-21] MEDS: levoFLOXacin 500 MG TAB PO SCH (09:30)
[2021-08-21 13:00] VITALS: BP 117/66
[2021-08-21 17:00] VITALS: BP 144/80
[2021-08-21] MEDS: SERTRALINE HCL 50 MG TAB PO SCH (21:21)
[2021-08-21 22:00] VITALS: BP 124/67
[2021-08-22] MEDS: SODIUM CHLORIDE 0.9% 1,000 ML IV SCH (01:22)
[2021-08-22 05:00] VITALS: BP 127/75
[2021-08-22] MEDS: GABAPENTIN 300 MG CAP PO SCH ×2 (05:58→14:36)
[2021-08-22] MEDS: InsuLIN REG 1unit/0.01ml Soln (100units/ml) SC SCH ×3 (06:06→17:57)
[2021-08-22] MEDS: ACCU-CHEK COMFORT CURVE STRIP VI SCH ×3 (06:06→17:00)
[2021-08-22] MEDS: Glucerna Carbsteady SHAKE Vanilla 8oz PO SCH ×3 (08:00→17:57)
[2021-08-22 08:41] VITALS: BP 127/66
[2021-08-22] MEDS: ENOXAPARIN SOD 40 MG/0.4 ML SYRINGE SC SCH (10:36)
[2021-08-22] MEDS: MULTIPLE VITAMIN TAB PO SCH (10:36)
[2021-08-22] MEDS: ZINC SULFATE 220mg CAP or TAB PO SCH (10:36)
[2021-08-22] MEDS: ASPirin 81 mg TAB PO SCH (10:36)
[2021-08-22] MEDS: DexAMETHasone 4 MG TAB PO SCH (10:37)
[2021-08-22] MEDS: ASCORBIC ACID 500 MG TAB PO SCH (10:37)
[2021-08-22] MEDS: metFORMIN HYDROCHLORIDE 500 MG TAB PO SCH ×2 (10:37→17:57)
[2021-08-22] MEDS: CHOLECALCIFEROL (VITD3) 1,000UNIT=25mCg TAB PO SCH (10:41)
[2021-08-22 13:00] VITALS: BP 112/63
[2021-08-22 16:47] VITALS: BP 112/63
[2021-08-22 17:00] VITALS: BP 118/71
== END 2021-08-22 21:10 | DRG 177 ==
LOC: EDBD 13:22 → ER 13:22 → EDSEX 13:22 → OVERFLOW 08-12 01:01 → EAST 08-12 03:54
PROVIDERS: ADMIT Nurse Practitioner Family; ATTEND Internal Medicine Geriatric Medicine
DX: U07.1 COVID-19 (principal); J12.82 Pneumonia due to coronavirus disease 2019; E87.1 Hypo-osmolality and hyponatremia; E44.0 Moderate protein-calorie malnutrition; E11.65 Type 2 diabetes mellitus with hyperglycemia; R62.7 Adult failure to thrive; E87.6 Hypokalemia; N28.9 Disorder of kidney and ureter, unspecified; Z60.2 Problems related to living alone; I10 Essential (primary) hypertension; E78.5 Hyperlipidemia, unspecified; Z83.3 Family history of diabetes mellitus; Z90.49 Acquired absence of other specified parts of digestive tract; Z88.1 Allergy status to other antibiotic agents; Z88.5 Allergy status to narcotic agent; Z88.0 Allergy status to penicillin; Z88.8 Allergy status to other drugs, medicaments and biological substances
CPT/HCPCS: 36415; 70450; 74176; 80048; 80053; 81001; 82962; 83036; 83605; 83735; 84484; 85007; 85025; 85027; 87040; 87086; 87426; 93005; 96361; 96374; 97110; 97116; 97163; 97530; G0378; J1815; J1956; J2405; J3490

== ENCOUNTER 2022-08-05 16:44 | Emergency (ER) | payer OTHER ==
[~2022-08-05] VITALS: Ht 167.6 cm; Wt 102.7 kg
[2022-08-05 17:10] VITALS: BP 119/76
[2022-08-05 19:48] LABS: Basophils # (auto) 0.1 10 ^3/uL (0-0.2); Eosinophils # (auto) 0.2 10 ^3/uL (0-0.8); Hemoglobin 12.6 g/dL (12.2-16.2); White Blood Cell 5.7 10^3/uL (4.4-10.8)
[2022-08-05 19:50] LABS: Basophils % (auto) 1.1 % (0.0-2.0); Eosinophils % (auto) 3.1 % (0.0-7.0); Lymphocytes # (auto) 1.4 10 ^3/uL (0.4-5.4); Lymphocytes % (auto) 25.5 % (10.0-50.0); Mean Corpuscular Hemoglobin 26.5 pg (28.0-32.0); Mean Corpuscular Hgb Conc. 32.2 g/dL (32.0-36.0); Mean Corpuscular Volume 82.5 fL (80.0-100.0); Monocytes # (auto) 0.4 10 ^3/uL (0-1.3); Monocytes % (auto) 6.5 % (0.0-12.0); Neutrophils # (auto) 3.6 10 ^3/uL (1.6-8.6); Neutrophils % (auto) 63.8 % (37.0-80.0); Nucleated Red Blood Cells % 0.1 %; Red Blood Cells 4.73 10^6/uL (4.0-5.20); Red Cell Distribution Width 13.9 % (11.8-14.3)
[2022-08-05] MEDS ORDERED: IOHEXOL 350 MG/ML 100ML IJ ONE (20:05)
[2022-08-05 20:22] LABS: Albumin 3.2 g/dL (3.4-5.0); BUN/Creatinine Ratio 21.5; Calcium 9.2 mg/dL (8.5-10.1); Magnesium 1.9 mg/dL (1.6-2.6); Potassium 4.2 mmol/L (3.5-5.1)
[2022-08-05 20:27] LABS: INR 0.98 (0.9-1.15)
[2022-08-05 20:31] LABS: Bilirubin, Total 0.7 mg/dL (0.2-1.0); Phosphorus 3.3 mg/dL (2.5-4.90); Total Protein 7.4 g/dL (6.4-8.2)
== END 2022-08-05 23:46 | disposition home or self-care (01) ==
LOC: ER 16:44 → EDBD 16:44 → ER 23:44
DX: R55 Syncope and collapse (principal); R26.89 Other abnormalities of gait and mobility; E11.9 Type 2 diabetes mellitus without complications; E78.5 Hyperlipidemia, unspecified; I10 Essential (primary) hypertension; Z90.49 Acquired absence of other specified parts of digestive tract; Z88.0 Allergy status to penicillin; Z88.6 Allergy status to analgesic agent; Z88.1 Allergy status to other antibiotic agents
CPT/HCPCS: 36415; 70450; 70496; 71045; 80053; 83690; 83735; 84100; 84484; 85025; 85610; 99285; Q9967

== ENCOUNTER 2023-06-27 12:24 | Inpatient (IN) | payer OTHER ==
[~2023-06-27] VITALS: Ht 162.6 cm; Wt 96.0 kg
[~2023-06-27 12:24] MED LIST changes: +GABA-1250 PO; -GABA300C10 PO
[2023-06-27 13:51] LABS: Basophils # (auto) 0.1 10 ^3/uL (0-0.2); Basophils % (auto) 1.4 % (0.0-2.0); Eosinophils # (auto) 0.2 10 ^3/uL (0-0.8); Eosinophils % (auto) 3.5 % (0.0-7.0); Hematocrit 36.6 % (36.0-46.0); Hemoglobin 12.2 g/dL (12.2-16.2); Lymphocytes # (auto) 1.5 10 ^3/uL (0.4-5.4); Lymphocytes % (auto) 26.8 % (10.0-50.0); Mean Corpuscular Hgb Conc. 33.3 g/dL (32.0-36.0); Monocytes # (auto) 0.3 10 ^3/uL (0-1.3); Monocytes % (auto) 6.2 % (0.0-12.0); Neutrophils # (auto) 3.5 10 ^3/uL (1.6-8.6); Neutrophils % (auto) 62.1 % (37.0-80.0); Nucleated Red Blood Cells % 0.4 %; Red Blood Cells 4.52 10^6/uL (4.0-5.20); Red Cell Distribution Width 13.1 % (11.8-14.3); White Blood Cell 5.6 10^3/uL (4.4-10.8)
[2023-06-27 14:15] LABS: Alanine Aminotransferase 20 U/L (7-40); Albumin 4.3 g/dL (3.2-4.8); Alkaline Phosphatase 121 U/L (46-116); Anion Gap 6 (5-15); Aspartate Aminotransferase 18 U/L (13-40); BUN/Creatinine Ratio 16.3 (10.0-20.0); Blood Urea Nitrogen 16 mg/dL (9-23); Calcium 9.5 mg/dL (8.7-10.4); Carbon Dioxide 27 mmol/L (20-30); Chloride 104 mmol/L (98-107); Glucose 189 mg/dL (74-106); Magnesium 1.8 mg/dL (1.6-2.6); Sodium 137 mmol/L (136-145)
[2023-06-27 14:16] LABS: Bilirubin, Total 0.9 mg/dL (0.2-1.0)
[2023-06-27 16:29] LABS: INR 1.04 (0.9-1.15); Partial Thromboplastin Time 27.4 SEC (24.5-34.5); Prothrombin Time 10.9 sec (9.3-11.8)
[2023-06-27] MEDS ORDERED: DEXTROSE (50%) 50ML SYRG IV PRN (19:30)
[2023-06-27 20:05] VITALS: PULSE 75; RESP 12; O2SAT 96
[2023-06-27 20:43] LABS: Phosphorus 4.1 mg/dL (2.4-5.1)
[2023-06-27 20:59] LABS: INR 1.05 (0.9-1.15)
[2023-06-27] MEDS: SODIUM CHLORIDE 0.9% 1,000 ML IV SCH (21:23)
[2023-06-27 21:35] LABS: Erythrocyte Sedimentation Rate 48 mm/hr (0-20)
[2023-06-27] MEDS: ENOXAPARIN SOD 100 MG/1 ML SYRINGE SC SCH ×2 (21:50→22:28)
[2023-06-27] MEDS: ATORVASTATIN 20 MG TAB PO SCH ×2 (21:51→22:22)
[2023-06-27] MEDS ORDERED: GABAPENTIN 100 MG CAP PO SCH (22:00)
[2023-06-27] MEDS ORDERED: ATORVASTATIN 20 MG TAB PO SCH (22:00)
[2023-06-27 22:11] LABS: Amphetamine Screen, Urine Neg (NEGATIVE); Barbiturate Scree,Urine Neg (NEGATIVE); Benzodiazephine Screen, Urine Neg (NEGATIVE); Cannabinoid Screen, Urine Neg (NEGATIVE); Cocaine Screen, Urine Neg (NEGATIVE); Opiate Scree,Urine Neg (NEGATIVE); Phencyclidine Screen, Urine Neg (NEGATIVE)
[2023-06-27 22:15] LABS: Urine Bacteria NONE SEEN /hpf (None Seen); Urine Blood TRACE /uL (Negative); Urine Budding Yeast OCCASIONAL /hpf (None Seen); Urine Clarity CLOUDY (Clear); Urine Color Colorless (Yellow); Urine Mucus FEW (None Seen); Urine Protein, UAD TRACE (Negative); Urine Specific Gravity 1.015 (1.001-1.035); Urine Urobilinogen Normal (Negative); Urine WBC 1204 /hpf (0 - 5); Urine WBC Clumps PRESENT /hpf (None Seen)
[2023-06-27] MEDS: GABAPENTIN 300 MG CAP PO SCH (22:22)
[2023-06-27] MEDS: hydrALAZINE HCL 20 MG/ML VL IV PRN (22:46)
[2023-06-28] VITALS (8 sets, daily range): BP systolic 126–179; BP diastolic 64–96; PULSE 76–91; RESP 16–20; TEMP 36.6; O2SAT 92–98
[2023-06-28] MEDS: InsuLIN REG 1unit/0.01ml Soln (100units/ml) SC SCH ×5 (00:13→23:08)
[2023-06-28] MEDS: ACCU-CHEK COMFORT CURVE STRIP VI SCH ×5 (00:13→23:05)
[2023-06-28] MEDS: SODIUM CHLORIDE 0.9% 1,000 ML IV SCH ×2 (05:30→15:30)
[2023-06-28] MEDS: hydrALAZINE HCL 20 MG/ML VL IV PRN (06:50)
[2023-06-28] MEDS: LOSARTAN POTASSIUM 25 MG TAB PO SCH (09:55)
[2023-06-28] MEDS: ASPirin 81 mg TAB PO SCH (09:56)
[2023-06-28] MEDS ORDERED: ENOXAPARIN SOD 40 MG/0.4 ML SYRINGE SC SCH (10:00)
[2023-06-28] MEDS: ENOXAPARIN SOD 100 MG/1 ML SYRINGE SC SCH (10:00)
[2023-06-28] MEDS ORDERED: BARIUM SULFATE 98% 340 GM PWDR ONE (16:42)
[2023-06-28] MEDS: ATORVASTATIN 20 MG TAB PO SCH (21:41)
[2023-06-28] MEDS: GABAPENTIN 300 MG CAP PO SCH (21:42)
[2023-06-29] MEDS: SODIUM CHLORIDE 0.9% 1,000 ML IV SCH ×3 (02:44→22:22)
[2023-06-29 05:00] VITALS: BP 136/71; PULSE 77; RESP 19; TEMP 98.1; O2SAT 93
[2023-06-29 05:07] LABS: RPR Non Reactive (Non Reactive)
[2023-06-29] MEDS: ACCU-CHEK COMFORT CURVE STRIP VI SCH ×4 (06:12→23:44)
[2023-06-29] MEDS: InsuLIN REG 1unit/0.01ml Soln (100units/ml) SC SCH ×4 (06:14→23:44)
[2023-06-29 08:00] VITALS: BP 149/70; PULSE 76; PULSE 78; PULSE 87; RESP 20; TEMP 98.2; O2SAT 95
[2023-06-29 08:06] LABS: Homocyst(e)ine 13.2 umol/L (0.0-19.2)
[2023-06-29] MEDS: ASPirin 81 mg TAB PO SCH (10:20)
[2023-06-29] MEDS: LOSARTAN POTASSIUM 25 MG TAB PO SCH (10:22)
[2023-06-29 12:50] VITALS: BP 155/85; PULSE 77; RESP 20; TEMP 97.6; O2SAT 95
[2023-06-29] MEDS: hydrALAZINE HCL 20 MG/ML VL IV PRN (17:03)
[2023-06-29 17:18] VITALS: BP 162/81; PULSE 78; RESP 20; TEMP 98.8; O2SAT 96
[2023-06-29 20:00] VITALS: PULSE 95; PULSE 96; RESP 20; O2SAT 96
[2023-06-29] MEDS: ATORVASTATIN 20 MG TAB PO SCH (21:20)
[2023-06-29] MEDS: GABAPENTIN 300 MG CAP PO SCH (21:20)
[2023-06-29 22:00] VITALS: BP 150/79; PULSE 80; RESP 18; TEMP 98.6; O2SAT 97
[2023-06-30] VITALS (7 sets, daily range): BP systolic 145–170; BP diastolic 68–84; PULSE 75–97; RESP 18–20; TEMP 97–98.9; O2SAT 92–97
[2023-06-30] MEDS: hydrALAZINE HCL 20 MG/ML VL IV PRN ×2 (05:26→17:30)
[2023-06-30] MEDS: ACCU-CHEK COMFORT CURVE STRIP VI SCH ×4 (05:45→23:58)
[2023-06-30] MEDS: InsuLIN REG 1unit/0.01ml Soln (100units/ml) SC SCH ×4 (05:46→23:58)
[2023-06-30] MEDS: SODIUM CHLORIDE 0.9% 1,000 ML IV SCH ×2 (07:30→17:29)
[2023-06-30] MEDS: ASPirin 81 mg TAB PO SCH (09:45)
[2023-06-30] MEDS: LOSARTAN POTASSIUM 25 MG TAB PO SCH (09:45)
[2023-06-30] MEDS: GABAPENTIN 300 MG CAP PO SCH (21:19)
[2023-06-30] MEDS: ATORVASTATIN 20 MG TAB PO SCH (21:19)
[2023-07-01] MEDS: SODIUM CHLORIDE 0.9% 1,000 ML IV SCH (03:30)
[2023-07-01 05:00] VITALS: BP 164/77; PULSE 88; RESP 19; TEMP 97.9; O2SAT 95
[2023-07-01] MEDS: ACCU-CHEK COMFORT CURVE STRIP VI SCH ×3 (06:14→17:37)
[2023-07-01] MEDS: InsuLIN REG 1unit/0.01ml Soln (100units/ml) SC SCH ×3 (06:18→17:37)
[2023-07-01 08:00] VITALS: PULSE 67
[2023-07-01 09:00] VITALS: BP_SYST 147; BP_SYST 148; BP_DIAS 65; BP_DIAS 83; PULSE 70; RESP 19; TEMP 97.4; O2SAT 94
[2023-07-01] MEDS: ASPirin 81 mg TAB PO SCH (09:01)
[2023-07-01] MEDS: LOSARTAN POTASSIUM 25 MG TAB PO SCH (09:02)
[2023-07-01 13:00] VITALS: BP 148/83; PULSE 71; RESP 18; TEMP 97.6; O2SAT 96
[2023-07-01 17:00] VITALS: BP 164/82; PULSE 68; RESP 18; TEMP 97.9; O2SAT 97
[2023-07-01] MEDS: hydrALAZINE HCL 20 MG/ML VL IV PRN (17:54)
[2023-07-01 20:00] VITALS: BP 148/76; PULSE 85; PULSE 86; PULSE 90; RESP 18; RESP 20; TEMP 99.2; O2SAT 94
[2023-07-01] MEDS: GABAPENTIN 300 MG CAP PO SCH (21:30)
[2023-07-01] MEDS: ATORVASTATIN 20 MG TAB PO SCH (21:30)
[2023-07-02 05:00] VITALS: BP 171/78; PULSE 68; RESP 18; TEMP 97.5; O2SAT 94
[2023-07-02] MEDS: InsuLIN REG 1unit/0.01ml Soln (100units/ml) SC SCH ×5 (06:00→16:10)
[2023-07-02] MEDS: ACCU-CHEK COMFORT CURVE STRIP VI SCH ×5 (06:00→16:10)
[2023-07-02] MEDS: hydrALAZINE HCL 20 MG/ML VL IV PRN (06:07)
[2023-07-02 08:00] VITALS: PULSE 76
[2023-07-02] MEDS ORDERED: ACETAMINOPHEN 325 MG TAB PO PRN (08:15)
[2023-07-02] MEDS: ASPirin 81 mg TAB PO SCH (08:47)
[2023-07-02 08:58] VITALS: BP 137/63; PULSE 85; RESP 19; TEMP 97.4; O2SAT 93
[2023-07-02] MEDS ORDERED: LOSARTAN POTASSIUM 25 MG TAB PO SCH (10:00)
[2023-07-02 12:55] VITALS: BP 136/66; PULSE 82; RESP 19; TEMP 98; O2SAT 93
== END 2023-07-02 17:36 | DRG 66 ==
LOC: EDBD 12:24 → ER 12:24 → TELE 19:47 → TELE-WESTW 19:57
PROVIDERS: ADMIT Nurse Practitioner Family; ATTEND Internal Medicine Geriatric Medicine
DX: I63.9 Cerebral infarction, unspecified (principal); D32.9 Benign neoplasm of meninges, unspecified; F32.A Depression, unspecified; R79.89 Other specified abnormal findings of blood chemistry; E11.65 Type 2 diabetes mellitus with hyperglycemia; E11.42 Type 2 diabetes mellitus with diabetic polyneuropathy; E78.2 Mixed hyperlipidemia; K44.9 Diaphragmatic hernia without obstruction or gangrene; R26.9 Unspecified abnormalities of gait and mobility; E04.1 Nontoxic single thyroid nodule; R53.1 Weakness; I10 Essential (primary) hypertension; R29.6 Repeated falls; Z79.899 Other long term (current) drug therapy; Z82.49 Family history of ischemic heart disease and other diseases of the circulatory system; Z83.3 Family history of diabetes mellitus; Z88.0 Allergy status to penicillin; Z88.8 Allergy status to other drugs, medicaments and biological substances; Z88.6 Allergy status to analgesic agent; Z90.49 Acquired absence of other specified parts of digestive tract
CPT/HCPCS: 36415; 70450; 70551; 71045; 71275; 72146; 72148; 74220; 80053; 80061; 80307; 81001; 82962; 83036; 83090; 83735; 83880; 84100; 84439; 84443; 84484; 85025; 85379; 85610; 85652; 85730; 86592; 92507; 92610; 92611; 93005; 93306; 93886; 97110; 97116; 97163; 97530; 99291; G0378; J1815

== ENCOUNTER 2023-07-29 16:11 | Emergency (ER) | payer OTHER ==
[~2023-07-29] VITALS: Ht 162.6 cm; Wt 180.0 kg
[2023-07-29 16:11] VITALS: BP 134/80; RESP 16; O2SAT 98
[2023-07-29 17:04] VITALS: PULSE 84
[2023-07-29 17:42] LABS: Basophils # (auto) 0.1 10 ^3/uL (0-0.2); Basophils % (auto) 0.9 % (0.0-2.0); Eosinophils # (auto) 0.2 10 ^3/uL (0-0.8); Eosinophils % (auto) 2.8 % (0.0-7.0); Hematocrit 37.9 % (36.0-46.0); Hemoglobin 12.5 g/dL (12.2-16.2); Lymphocytes # (auto) 1.5 10 ^3/uL (0.4-5.4); Lymphocytes % (auto) 21.9 % (10.0-50.0); Mean Corpuscular Hemoglobin 27.4 pg (28.0-32.0); Mean Corpuscular Hgb Conc. 32.9 g/dL (32.0-36.0); Mean Corpuscular Volume 83.2 fL (80.0-100.0); Monocytes # (auto) 0.4 10 ^3/uL (0-1.3); Neutrophils # (auto) 4.7 10 ^3/uL (1.6-8.6); Neutrophils % (auto) 68.4 % (37.0-80.0); Nucleated Red Blood Cells % 0.1 %; Red Blood Cells 4.56 10^6/uL (4.0-5.20); Red Cell Distribution Width 13.6 % (11.8-14.3); White Blood Cell 6.9 10^3/uL (4.4-10.8)
[2023-07-29 17:54] LABS: Alanine Aminotransferase 26 U/L (7-40); Albumin 4.3 g/dL (3.2-4.8); Alkaline Phosphatase 119 U/L (46-116); Anion Gap 8 (5-15); Aspartate Aminotransferase 17 U/L (13-40); BUN/Creatinine Ratio 16.9 (10.0-20.0); Bilirubin, Total 0.8 mg/dL (0.2-1.0); Blood Urea Nitrogen 14 mg/dL (9-23); Calcium 9.3 mg/dL (8.7-10.4); Carbon Dioxide 26 mmol/L (20-30); Chloride 106 mmol/L (98-107); Glucose 200 mg/dL (74-106); Magnesium 1.8 mg/dL (1.6-2.6); Potassium 3.9 mmol/L (3.5-5.1); Sodium 140 mmol/L (136-145); Total Protein 7.1 g/dL (5.7-8.2)
== END 2023-07-29 20:06 | disposition left against medical advice (07) ==
LOC: ER 16:11 → EDUNIT# 16:11 → EDBD 16:11 → ER 19:48
DX: R53.1 Weakness (principal); E11.65 Type 2 diabetes mellitus with hyperglycemia; I10 Essential (primary) hypertension; Z90.49 Acquired absence of other specified parts of digestive tract; Z88.0 Allergy status to penicillin; Z88.1 Allergy status to other antibiotic agents; Z88.5 Allergy status to narcotic agent
CPT/HCPCS: 36415; 80053; 83735; 84484; 85025; 93005

== ENCOUNTER 2023-07-30 10:43 | Inpatient (IN) | payer MEDICARE, MEDICAID ==
[~2023-07-30] VITALS: Ht 162.6 cm; Wt 92.7 kg
[2023-07-30] MEDS ORDERED: levoFLOXacin 500MG 100 ML IV ONE (11:00)
[2023-07-30] MEDS ORDERED: SODIUM CHLORIDE 0.9% 1,000 ML IV ONE (11:00)
[2023-07-30 12:05] LABS: Basophils # (auto) 0.1 10 ^3/uL (0-0.2); Basophils % (auto) 0.8 % (0.0-2.0); Eosinophils # (auto) 0.1 10 ^3/uL (0-0.8); Eosinophils % (auto) 1.5 % (0.0-7.0); Hematocrit 37.5 % (36.0-46.0); Hemoglobin 12.3 g/dL (12.2-16.2); Lymphocytes # (auto) 1.3 10 ^3/uL (0.4-5.4); Lymphocytes % (auto) 17.8 % (10.0-50.0); Mean Corpuscular Hemoglobin 27.5 pg (28.0-32.0); Mean Corpuscular Hgb Conc. 32.8 g/dL (32.0-36.0); Mean Corpuscular Volume 83.8 fL (80.0-100.0); Monocytes # (auto) 0.4 10 ^3/uL (0-1.3); Monocytes % (auto) 5.9 % (0.0-12.0); Neutrophils # (auto) 5.5 10 ^3/uL (1.6-8.6); Nucleated Red Blood Cells % 0.1 %; Red Blood Cells 4.47 10^6/uL (4.0-5.20); Red Cell Distribution Width 13.7 % (11.8-14.3); White Blood Cell 7.4 10^3/uL (4.4-10.8)
[2023-07-30] MEDS ORDERED: ACETAMINOPHEN 325 MG TAB PO PRN (16:15)
[2023-07-30] MEDS ORDERED: NITROGLYCERIN 0.4 MG SL TAB SL PRN (16:15)
[2023-07-30] MEDS ORDERED: MORPHINE SULFATE INJ 2 MG/ml SYRG IV PRN (16:15)
[2023-07-30] MEDS ORDERED: ONDANSETRON HCL 4 MG/2 ML VIAL IV PRN (16:15)
[2023-07-30] MEDS ORDERED: DEXTROSE (50%) 50ML SYRG IV PRN (16:15)
[2023-07-30] MEDS ORDERED: HYDROcodone-ACET 5/325MG TAB PO PRN (16:15)
[2023-07-30] MEDS: InsuLIN REG 1unit/0.01ml Soln (100units/ml) SC SCH ×2 (17:00→23:12)
[2023-07-30 17:48] LABS: Alanine Aminotransferase 25 U/L (7-40); Albumin 4.3 g/dL (3.2-4.8); Alkaline Phosphatase 113 U/L (46-116); Anion Gap 6 (5-15); BUN/Creatinine Ratio 12.3 (10.0-20.0); Bilirubin, Total 0.9 mg/dL (0.2-1.0); Blood Urea Nitrogen 10 mg/dL (9-23); Carbon Dioxide 26 mmol/L (20-30); Chloride 107 mmol/L (98-107); Glucose 200 mg/dL (74-106); Potassium 3.9 mmol/L (3.5-5.1); Sodium 139 mmol/L (136-145); Total Protein 7.1 g/dL (5.7-8.2)
[2023-07-30 18:24] LABS: Calcium 9.4 mg/dL (8.7-10.4)
[2023-07-30 18:31] LABS: Aspartate Aminotransferase 21 U/L (13-40)
[2023-07-30] MEDS: ACCU-CHEK COMFORT CURVE STRIP VI SCH ×2 (19:19→23:09)
[2023-07-30 19:28] VITALS: PULSE 96; RESP 20; O2SAT 97
[2023-07-30] MEDS: SODIUM CHLORIDE 0.9% 1,000 ML IV SCH (21:30)
[2023-07-30 22:00] VITALS: BP 141/75; PULSE 88; RESP 18; O2SAT 92
[2023-07-30] MEDS: ATORVASTATIN 20 MG TAB PO SCH (23:07)
[2023-07-30 23:52] VITALS: BP 141/75; PULSE 88; RESP 18; O2SAT 92
[2023-07-31 00:21] LABS: COVID19 ANTIGEN SOFIA FIA NEGATIVE (NEGATIVE)
[2023-07-31 05:00] VITALS: BP 126/52; PULSE 94; RESP 17; TEMP 98.4; O2SAT 96
[2023-07-31] MEDS: InsuLIN REG 1unit/0.01ml Soln (100units/ml) SC SCH ×4 (06:56→22:00)
[2023-07-31] MEDS: ACCU-CHEK COMFORT CURVE STRIP VI SCH ×4 (06:57→22:00)
[2023-07-31 09:00] VITALS: BP 157/84; PULSE 80; RESP 18; TEMP 98.2; O2SAT 96
[2023-07-31] MEDS ORDERED: levoFLOXacin 750MG 150 ML IV SCH ×2 (10:00→14:30)
[2023-07-31] MEDS: ASPirin 81 mg TAB PO SCH (10:00)
[2023-07-31] MEDS: SODIUM CHLORIDE 0.9% 1,000 ML IV SCH ×2 (10:03→19:55)
[2023-07-31 10:29] LABS: Basophils # (auto) 0.1 10 ^3/uL (0-0.2); Basophils % (auto) 1.4 % (0.0-2.0); Eosinophils # (auto) 0.2 10 ^3/uL (0-0.8); Eosinophils % (auto) 3.6 % (0.0-7.0); Hematocrit 34.8 % (36.0-46.0); Hemoglobin 11.2 g/dL (12.2-16.2); Lymphocytes # (auto) 1.6 10 ^3/uL (0.4-5.4); Lymphocytes % (auto) 30.1 % (10.0-50.0); Mean Corpuscular Hgb Conc. 32.2 g/dL (32.0-36.0); Mean Corpuscular Volume 83.9 fL (80.0-100.0); Monocytes # (auto) 0.4 10 ^3/uL (0-1.3); Monocytes % (auto) 6.7 % (0.0-12.0); Neutrophils # (auto) 3.1 10 ^3/uL (1.6-8.6); Neutrophils % (auto) 58.2 % (37.0-80.0); Nucleated Red Blood Cells % 0.1 %; Red Blood Cells 4.15 10^6/uL (4.0-5.20); Red Cell Distribution Width 13.7 % (11.8-14.3); White Blood Cell 5.4 10^3/uL (4.4-10.8)
[2023-07-31 10:55] LABS: Chloride 110 mmol/L (98-107); Potassium 3.6 mmol/L (3.5-5.1); Sodium 141 mmol/L (136-145)
[2023-07-31 10:56] LABS: Anion Gap 5 (5-15); Calcium 8.5 mg/dL (8.7-10.4); Carbon Dioxide 26 mmol/L (20-30)
[2023-07-31 11:01] LABS: BUN/Creatinine Ratio 11.4 (10.0-20.0); Blood Urea Nitrogen 9 mg/dL (9-23); Glucose 177 mg/dL (74-106)
[2023-07-31 13:00] VITALS: BP 157/82; PULSE 79; RESP 18; TEMP 98.1; O2SAT 97
[2023-07-31 13:10] LABS: Urine Bacteria FEW /hpf (None Seen); Urine Blood Negative /uL (Negative); Urine Clarity Clear (Clear); Urine Color Colorless (Yellow); Urine Protein, UAD Negative (Negative); Urine Specific Gravity 1.015 (1.001-1.035); Urine Urobilinogen Normal (Negative); Urine WBC 5 /hpf (0 - 5)
[2023-07-31 16:30] VITALS: BP 153/70; PULSE 83; RESP 18; TEMP 98.2; O2SAT 97
[2023-07-31 20:00] VITALS: BP 164/86; PULSE 82; RESP 19; TEMP 97.8
[2023-07-31] MEDS ORDERED: hydrALAZINE HCL 20 MG/ML VL IV ONE (21:15)
[2023-07-31 22:00] VITALS: BP 164/86; PULSE 82; RESP 19; TEMP 97.8; O2SAT 95
[2023-07-31] MEDS ORDERED: GABAPENTIN 300 MG CAP PO SCH (22:00)
[2023-07-31] MEDS: ATORVASTATIN 20 MG TAB PO SCH (22:44)
[2023-07-31] MEDS: NYSTATIN TOPICAL POWDER 15GM TOP SCH (22:59)
[2023-08-01 05:00] VITALS: BP 152/67; PULSE 98; RESP 19; TEMP 97.6; O2SAT 95
[2023-08-01] MEDS: ACCU-CHEK COMFORT CURVE STRIP VI SCH ×2 (06:25→11:57)
[2023-08-01] MEDS: InsuLIN REG 1unit/0.01ml Soln (100units/ml) SC SCH ×2 (06:25→11:57)
[2023-08-01 06:43] LABS: Basophils # (auto) 0.1 10 ^3/uL (0-0.2); Basophils % (auto) 0.9 % (0.0-2.0); Eosinophils # (auto) 0.3 10 ^3/uL (0-0.8); Eosinophils % (auto) 4.9 % (0.0-7.0); Hematocrit 30.5 % (36.0-46.0); Hemoglobin 10.1 g/dL (12.2-16.2); Lymphocytes # (auto) 1.8 10 ^3/uL (0.4-5.4); Lymphocytes % (auto) 32.2 % (10.0-50.0); Mean Corpuscular Hemoglobin 27.2 pg (28.0-32.0); Mean Corpuscular Hgb Conc. 33.2 g/dL (32.0-36.0); Mean Corpuscular Volume 82.1 fL (80.0-100.0); Monocytes # (auto) 0.5 10 ^3/uL (0-1.3); Monocytes % (auto) 8.4 % (0.0-12.0); Neutrophils % (auto) 53.6 % (37.0-80.0); Red Blood Cells 3.72 10^6/uL (4.0-5.20); Red Cell Distribution Width 13.8 % (11.8-14.3); White Blood Cell 5.6 10^3/uL (4.4-10.8)
[2023-08-01 07:09] LABS: Chloride 110 mmol/L (98-107); Potassium 3.2 mmol/L (3.5-5.1); Sodium 143 mmol/L (136-145)
[2023-08-01 07:10] LABS: Anion Gap 9 (5-15); Calcium 8.9 mg/dL (8.5-10.1); Carbon Dioxide 24 mmol/L (20-30)
[2023-08-01 07:15] LABS: Blood Urea Nitrogen 9 mg/dL (9-23); Glucose 140 mg/dL (74-106)
[2023-08-01 08:00] VITALS: BP 154/89; PULSE 86; RESP 20; TEMP 98.9; O2SAT 95
[2023-08-01] MEDS ORDERED: POTASSIUM CHL 20 Meq TABLET PO ONE (08:45)
[2023-08-01] MEDS ORDERED: ERGOCALCIFEROL 50,000 UNIT(1.25MG) CAP PO SCH (08:45)
[2023-08-01 09:00] VITALS: BP 154/89; PULSE 86; RESP 18; TEMP 98.9; O2SAT 95
[2023-08-01] MEDS: SODIUM CHLORIDE 0.9% 1,000 ML IV SCH (09:15)
[2023-08-01 09:17] LABS: % Iron Saturation 23.8 % (15-50)
[2023-08-01] MEDS ORDERED: levoFLOXacin 250 MG TAB PO SCH (10:00)
[2023-08-01] MEDS ORDERED: ENOXAPARIN SOD 40 MG/0.4 ML SYRINGE SC SCH (10:00)
[2023-08-01] MEDS: ASPirin 81 mg TAB PO SCH (10:06)
[2023-08-01] MEDS: NYSTATIN TOPICAL POWDER 15GM TOP SCH (10:17)
[2023-08-01 13:00] VITALS: BP 157/87; PULSE 74; RESP 18; TEMP 98.7; O2SAT 96
[2023-08-01 16:49] VITALS: BP 157/81; PULSE 82; RESP 18; TEMP 98.6; O2SAT 99
== END 2023-08-01 16:50 | DRG 641 ==
LOC: EDBD 10:43 → ER 10:43 → OVERFLOW 16:19 → WEST WING 22:20
PROVIDERS: ADMIT Internal Medicine; ATTEND Internal Medicine
DX: E86.0 Dehydration (principal); N39.0 Urinary tract infection, site not specified; I69.351 Hemiplegia and hemiparesis following cerebral infarction affecting right dominant side; R62.7 Adult failure to thrive; Z20.822 Contact with and (suspected) exposure to COVID-19; F41.9 Anxiety disorder, unspecified; E78.5 Hyperlipidemia, unspecified; E11.9 Type 2 diabetes mellitus without complications; I10 Essential (primary) hypertension; Z68.35 Body mass index [BMI] 35.0-35.9, adult; Z88.1 Allergy status to other antibiotic agents; Z88.5 Allergy status to narcotic agent; Z88.0 Allergy status to penicillin
CPT/HCPCS: 36415; 70450; 71045; 80048; 80053; 81001; 82306; 82607; 82962; 83540; 83550; 83605; 83735; 84484; 85025; 87040; 87086; 87426; 93005; 96361; 96365; 97110; 97116; 97163; 97530; 99291; G0378; J1815; J1956

== ENCOUNTER 2023-09-15 13:14 | Inpatient (IN) | payer MEDICARE, MEDICAID ==
[~2023-09-15] VITALS: Ht 165.1 cm; Wt 102.6 kg
[2023-09-15 23:32] VITALS: PULSE 90; RESP 16; O2SAT 96
[2023-09-16] MEDS: GABAPENTIN 300 MG CAP PO SCH (00:25)
[2023-09-16 02:51] VITALS: PULSE 97; RESP 18; O2SAT 97
[2023-09-16] MEDS ORDERED: GABAPENTIN 300 MG CAP PO ONE (04:30)
[2023-09-16 08:21] VITALS: PULSE 82; RESP 12; O2SAT 98
[2023-09-16] MEDS ORDERED: ACETAMINOPHEN 325 MG TAB PO PRN (18:00)
[2023-09-16] MEDS ORDERED: DOCUSATE SOD 100 MG CAP PO PRN (18:00)
[2023-09-16] MEDS ORDERED: ONDANSETRON HCL 4 MG/2 ML VIAL IV PRN (18:00)
[2023-09-16] MEDS ORDERED: hydrALAZINE HCL 20 MG/ML VL IV PRN (18:45)
[2023-09-16] MEDS ORDERED: DEXTROSE (50%) 50ML SYRG IV PRN (18:45)
[2023-09-16 18:52] LABS: Basophils # (auto) 0.1 10 ^3/uL (0-0.2); Basophils % (auto) 0.9 % (0.0-2.0); Eosinophils # (auto) 0.2 10 ^3/uL (0-0.8); Eosinophils % (auto) 3.1 % (0.0-7.0); Hematocrit 36.6 % (36.0-46.0); Hemoglobin 12.2 g/dL (12.2-16.2); Lymphocytes # (auto) 1.9 10 ^3/uL (0.4-5.4); Lymphocytes % (auto) 28.5 % (10.0-50.0); Mean Corpuscular Hemoglobin 27.9 pg (28.0-32.0); Mean Corpuscular Hgb Conc. 33.3 g/dL (32.0-36.0); Mean Corpuscular Volume 83.8 fL (80.0-100.0); Monocytes # (auto) 0.4 10 ^3/uL (0-1.3); Monocytes % (auto) 6.5 % (0.0-12.0); Nucleated Red Blood Cells % 0.2 %; Red Blood Cells 4.37 10^6/uL (4.0-5.20); Red Cell Distribution Width 14.6 % (11.8-14.3); White Blood Cell 6.6 10^3/uL (4.4-10.8)
[2023-09-16 19:04] LABS: Alanine Aminotransferase 16 U/L (7-40); Albumin 4.3 g/dL (3.2-4.8); Alkaline Phosphatase 113 U/L (46-116); Anion Gap 8 (5-15); Aspartate Aminotransferase 17 U/L (13-40); Bilirubin, Total 1.7 mg/dL (0.2-1.0); Blood Urea Nitrogen 16 mg/dL (9-23); Calcium 9.5 mg/dL (8.5-10.1); Carbon Dioxide 25 mmol/L (20-30); Chloride 108 mmol/L (98-107); Glucose 131 mg/dL (74-106); Potassium 3.9 mmol/L (3.5-5.1); Sodium 141 mmol/L (136-145); Total Protein 7.2 g/dL (5.7-8.2)
[2023-09-16 19:25] VITALS: PULSE 97; RESP 12; O2SAT 100
[2023-09-16] MEDS: ACCU-CHEK COMFORT CURVE STRIP VI SCH (22:31)
[2023-09-16] MEDS: InsuLIN REG 1unit/0.01ml Soln (100units/ml) SC SCH (22:31)
[2023-09-17] MEDS: InsuLIN REG 1unit/0.01ml Soln (100units/ml) SC SCH ×4 (06:27→22:35)
[2023-09-17] MEDS: ACCU-CHEK COMFORT CURVE STRIP VI SCH ×4 (06:28→22:13)
[2023-09-17 08:58] VITALS: PULSE 82; RESP 20; O2SAT 96
[2023-09-17 13:20] LABS: Basophils # (auto) 0.1 10 ^3/uL (0-0.2); Basophils % (auto) 1.5 % (0.0-2.0); Eosinophils # (auto) 0.3 10 ^3/uL (0-0.8); Eosinophils % (auto) 4.8 % (0.0-7.0); Hematocrit 35.3 % (36.0-46.0); Hemoglobin 11.9 g/dL (12.2-16.2); Lymphocytes # (auto) 1.8 10 ^3/uL (0.4-5.4); Lymphocytes % (auto) 32.9 % (10.0-50.0); Mean Corpuscular Hemoglobin 28.2 pg (28.0-32.0); Mean Corpuscular Hgb Conc. 33.7 g/dL (32.0-36.0); Mean Corpuscular Volume 83.6 fL (80.0-100.0); Monocytes # (auto) 0.3 10 ^3/uL (0-1.3); Monocytes % (auto) 6.4 % (0.0-12.0); Neutrophils # (auto) 2.9 10 ^3/uL (1.6-8.6); Neutrophils % (auto) 54.4 % (37.0-80.0); Red Blood Cells 4.22 10^6/uL (4.0-5.20); Red Cell Distribution Width 14.3 % (11.8-14.3); White Blood Cell 5.4 10^3/uL (4.4-10.8)
[2023-09-17 13:39] LABS: Alanine Aminotransferase 15 U/L (7-40); Alkaline Phosphatase 105 U/L (46-116); Anion Gap 6 (5-15); Aspartate Aminotransferase 20 U/L (13-40); BUN/Creatinine Ratio 17.5 (10.0-20.0); Bilirubin, Total 1.5 mg/dL (0.2-1.0); Blood Urea Nitrogen 14 mg/dL (9-23); Calcium 9.7 mg/dL (8.5-10.1); Carbon Dioxide 25 mmol/L (20-30); Chloride 109 mmol/L (98-107); Glucose 159 mg/dL (74-106); Potassium 3.8 mmol/L (3.5-5.1); Sodium 140 mmol/L (136-145); Total Protein 6.8 g/dL (5.7-8.2)
[2023-09-17 14:42] VITALS: BP 132/92; PULSE 91; RESP 16; TEMP 98.7; O2SAT 94
[2023-09-17] MEDS ORDERED: ASPirin 81 mg TAB PO ONE (15:45)
[2023-09-17 16:42] VITALS: BP 127/65; PULSE 75; RESP 16; TEMP 98.3; O2SAT 98
[2023-09-17] MEDS: metFORMIN HYDROCHLORIDE 500 MG TAB PO SCH (17:19)
[2023-09-17 19:02] LABS: Urine Bacteria MANY /hpf (None Seen); Urine Blood TRACE /uL (Negative); Urine Clarity HAZY (Clear); Urine Color Yellow (Yellow); Urine Protein, UAD 1+ (Negative); Urine Specific Gravity 1.022 (1.001-1.035); Urine Urobilinogen Normal (Negative); Urine WBC 407 /hpf (0 - 5); Urine pH 5.5 (5.0-8.0)
[2023-09-17 20:00] VITALS: BP 136/74; PULSE 87; RESP 18; TEMP 98.5; O2SAT 99
[2023-09-17 22:00] VITALS: BP 136/74; PULSE 87; RESP 18; TEMP 98.5; O2SAT 94
[2023-09-17] MEDS: GABAPENTIN 300 MG CAP PO SCH (22:13)
[2023-09-18] VITALS (7 sets, daily range): BP systolic 97–173; BP diastolic 63–88; PULSE 80–87; RESP 14–18; TEMP 97.2–98.3; O2SAT 95–97
[2023-09-18] MEDS: ACCU-CHEK COMFORT CURVE STRIP VI SCH ×4 (06:51→22:00)
[2023-09-18] MEDS: InsuLIN REG 1unit/0.01ml Soln (100units/ml) SC SCH ×4 (06:51→22:00)
[2023-09-18] MEDS: ASPirin 81 mg TAB PO SCH (08:59)
[2023-09-18] MEDS: metFORMIN HYDROCHLORIDE 500 MG TAB PO SCH ×2 (08:59→18:22)
[2023-09-18] MEDS: LISINOPRIL 10 MG TAB PO SCH (13:00)
[2023-09-18] MEDS: GABAPENTIN 300 MG CAP PO SCH (21:52)
[2023-09-19 05:00] VITALS: BP 124/61; PULSE 80; TEMP 97.5; O2SAT 94
[2023-09-19] MEDS: ACCU-CHEK COMFORT CURVE STRIP VI SCH ×4 (06:26→22:00)
[2023-09-19] MEDS: InsuLIN REG 1unit/0.01ml Soln (100units/ml) SC SCH ×4 (06:26→22:00)
[2023-09-19 08:00] VITALS: O2SAT 97
[2023-09-19] MEDS: metFORMIN HYDROCHLORIDE 500 MG TAB PO SCH ×2 (08:00→17:48)
[2023-09-19 09:13] VITALS: BP 141/73; PULSE 77; RESP 15; TEMP 98.4; O2SAT 96
[2023-09-19] MEDS: CIPROFLOXACIN HYDROCHLORIDE 250 MG TAB PO SCH ×2 (10:30→22:22)
[2023-09-19] MEDS: ASPirin 81 mg TAB PO SCH (10:54)
[2023-09-19] MEDS: LISINOPRIL 10 MG TAB PO SCH (10:54)
[2023-09-19 13:04] VITALS: BP 94/50; PULSE 79; RESP 15; TEMP 97.9; O2SAT 96
[2023-09-19 16:49] VITALS: BP 116/58; PULSE 82; RESP 18; TEMP 98; O2SAT 97
[2023-09-19 20:00] VITALS: PULSE 80; RESP 18; O2SAT 95
[2023-09-19] MEDS: GABAPENTIN 300 MG CAP PO SCH (22:21)
[2023-09-20] MEDS: InsuLIN REG 1unit/0.01ml Soln (100units/ml) SC SCH (06:33)
[2023-09-20] MEDS: ACCU-CHEK COMFORT CURVE STRIP VI SCH (06:34)
[2023-09-20] MEDS: ASPirin 81 mg TAB PO SCH (09:58)
[2023-09-20] MEDS: CIPROFLOXACIN HYDROCHLORIDE 250 MG TAB PO SCH (10:00)
[2023-09-20] MEDS: LISINOPRIL 10 MG TAB PO SCH (10:00)
[2023-09-20] MEDS: metFORMIN HYDROCHLORIDE 500 MG TAB PO SCH (10:02)
[2023-09-20 10:56] VITALS: BP 114/68; PULSE 78; RESP 19; TEMP 97.4; O2SAT 98
[2023-09-20 12:50] VITALS: BP 117/64; PULSE 69; RESP 19; TEMP 97.3; O2SAT 96
== END 2023-09-20 14:35 | DRG 74 ==
LOC: EDBD 13:14 → ER 13:14 → OVERFLOW 09-16 17:52 → CENTRAL 09-17 14:22
PROVIDERS: ADMIT Nurse Practitioner Family; ATTEND Internal Medicine Geriatric Medicine
DX: E11.40 Type 2 diabetes mellitus with diabetic neuropathy, unspecified (principal); N39.0 Urinary tract infection, site not specified; E78.5 Hyperlipidemia, unspecified; R62.7 Adult failure to thrive; E04.1 Nontoxic single thyroid nodule; E78.2 Mixed hyperlipidemia; F32.A Depression, unspecified; F41.9 Anxiety disorder, unspecified; K44.9 Diaphragmatic hernia without obstruction or gangrene; D32.9 Benign neoplasm of meninges, unspecified; Z86.73 Personal history of transient ischemic attack (TIA), and cerebral infarction without residual deficits; I10 Essential (primary) hypertension; Z88.0 Allergy status to penicillin; Z88.5 Allergy status to narcotic agent; Z88.8 Allergy status to other drugs, medicaments and biological substances; Z79.899 Other long term (current) drug therapy; Z90.49 Acquired absence of other specified parts of digestive tract; Z90.710 Acquired absence of both cervix and uterus; Z91.81 History of falling; Z68.37 Body mass index [BMI] 37.0-37.9, adult
CPT/HCPCS: 36415; 80053; 81001; 82962; 85025; 97110; 97116; 97163; 97530; G0378; J1815

== ENCOUNTER 2023-12-02 15:28 | Emergency (ER) | payer OTHER, MEDICAID ==
[~2023-12-02] VITALS: Ht 167.6 cm; Wt 84.0 kg
[2023-12-02 18:29] LABS: Basophils # (auto) 0 10 ^3/uL (0-0.2); Basophils % (auto) 0.5 % (0.0-2.0); Chloride 107 mmol/L (98-107); Eosinophils # (auto) 0.2 10 ^3/uL (0-0.8); Eosinophils % (auto) 3.4 % (0.0-7.0); Hematocrit 39.5 % (36.0-46.0); Hemoglobin 13.2 g/dL (12.2-16.2); Lymphocytes # (auto) 2.1 10 ^3/uL (0.4-5.4); Lymphocytes % (auto) 32.9 % (10.0-50.0); Mean Corpuscular Hemoglobin 28.2 pg (28.0-32.0); Mean Corpuscular Hgb Conc. 33.5 g/dL (32.0-36.0); Mean Corpuscular Volume 84.4 fL (80.0-100.0); Monocytes # (auto) 0.3 10 ^3/uL (0-1.3); Monocytes % (auto) 5.3 % (0.0-12.0); Neutrophils # (auto) 3.6 10 ^3/uL (1.6-8.6); Neutrophils % (auto) 57.9 % (37.0-80.0); Nucleated Red Blood Cells % 0.4 %; Potassium 3.8 mmol/L (3.5-5.1); Red Blood Cells 4.68 10^6/uL (4.0-5.20); Red Cell Distribution Width 13.1 % (11.8-14.3); Sodium 141 mmol/L (136-145); White Blood Cell 6.3 10^3/uL (4.4-10.8)
[2023-12-02 18:30] LABS: Anion Gap 10 (5-15); Carbon Dioxide 24 mmol/L (20-30)
[2023-12-02 18:31] LABS: Calcium 9.8 mg/dL (8.5-10.1)
[2023-12-02 18:35] LABS: Blood Urea Nitrogen 18 mg/dL (9-23); Glucose 117 mg/dL (74-106)
[2023-12-02 21:39] LABS: Urine Amorphous Crystal FEW /hpf (None Seen); Urine Bacteria FEW /hpf (None Seen); Urine Blood Negative /uL (Negative); Urine Clarity Turbid (Clear); Urine Color Yellow (Yellow); Urine Mucus FEW (None Seen); Urine Protein, UAD 1+ (Negative); Urine Specific Gravity 1.027 (1.001-1.035); Urine Urobilinogen Normal (Negative); Urine WBC 87 /hpf (0 - 5); Urine pH 5.5 (5.0-9.0)
[2023-12-02] MEDS ORDERED: LEVO750T40 PO (21:55)
[2023-12-02] MEDS ORDERED: ACET500T58 PO (21:55)
[2023-12-02 21:56] VITALS: PULSE 93; RESP 16; O2SAT 95
[2023-12-02 22:01] VITALS: BP 130/97; PULSE 93; RESP 16; TEMP 98; O2SAT 95
[2023-12-02] MEDS: levoFLOXacin 250 MG TAB PO ONE (22:11)
== END 2023-12-02 22:11 | disposition home or self-care (01) ==
LOC: EDBD 15:28 → ER 15:28
DX: J18.9 Pneumonia, unspecified organism (principal); N39.0 Urinary tract infection, site not specified; E11.9 Type 2 diabetes mellitus without complications; E78.5 Hyperlipidemia, unspecified; I10 Essential (primary) hypertension; Z86.73 Personal history of transient ischemic attack (TIA), and cerebral infarction without residual deficits; Z90.49 Acquired absence of other specified parts of digestive tract; Z90.89 Acquired absence of other organs
CPT/HCPCS: 36415; 70450; 71045; 80048; 81001; 83880; 84484; 85025; 85379; 93005

== ENCOUNTER 2023-12-13 15:51 | Inpatient (IN) | payer OTHER, MEDICAID ==
[~2023-12-13] VITALS: Ht 165.1 cm; Wt 83.8 kg
[~2023-12-13 15:51] MED LIST changes: +ACET500T58 PO; +LEVO750T40 PO
[2023-12-13 17:01] LABS: Basophils # (auto) 0.1 10 ^3/uL (0-0.2); Basophils % (auto) 2.3 % (0.0-2.0); Eosinophils # (auto) 0.2 10 ^3/uL (0-0.8); Eosinophils % (auto) 2.9 % (0.0-7.0); Hematocrit 38.4 % (36.0-46.0); Lymphocytes # (auto) 1.8 10 ^3/uL (0.4-5.4); Lymphocytes % (auto) 33.6 % (10.0-50.0); Mean Corpuscular Hemoglobin 28.2 pg (28.0-32.0); Mean Corpuscular Hgb Conc. 33.8 g/dL (32.0-36.0); Mean Corpuscular Volume 83.3 fL (80.0-100.0); Monocytes # (auto) 0.3 10 ^3/uL (0-1.3); Neutrophils # (auto) 2.9 10 ^3/uL (1.6-8.6); Neutrophils % (auto) 55.2 % (37.0-80.0); Nucleated Red Blood Cells % 0.1 %; Red Blood Cells 4.61 10^6/uL (4.0-5.20); Red Cell Distribution Width 12.8 % (11.8-14.3); White Blood Cell 5.3 10^3/uL (4.4-10.8)
[2023-12-13 17:16] LABS: Alanine Aminotransferase 16 U/L (7-40); Albumin 4.1 g/dL (3.2-4.8); Alkaline Phosphatase 98 U/L (46-116); Anion Gap 7 (5-15); Aspartate Aminotransferase 18 U/L (13-40); BUN/Creatinine Ratio 12.8 (10.0-20.0); Bilirubin, Total 1.2 mg/dL (0.2-1.0); Blood Urea Nitrogen 11 mg/dL (9-23); Calcium 9.7 mg/dL (8.7-10.4); Carbon Dioxide 27 mmol/L (20-30); Chloride 107 mmol/L (98-107); Glucose 153 mg/dL (74-106); Potassium 3.4 mmol/L (3.5-5.1); Sodium 141 mmol/L (136-145); Total Protein 7.1 g/dL (5.7-8.2)
[2023-12-13] MEDS ORDERED: HYDROmorphone HCL 2 MG/ML VL/or syr IV PRN (18:00)
[2023-12-13] MEDS ORDERED: DOCUSATE SOD 100 MG CAP PO PRN (18:00)
[2023-12-13] MEDS ORDERED: HYDROcodone-ACET 5/325MG TAB PO PRN (18:00)
[2023-12-13 19:35] VITALS: PULSE 79; RESP 13; O2SAT 97
[2023-12-13] MEDS: metroNIDAZOLE 500MG/100ML 100 ML IV ONE (21:21)
[2023-12-13] MEDS: SODIUM CHLOR 0.9% PF (SALINE LOCK) 10ML VIAL/SYR IV SCH (22:29)
[2023-12-13 23:14] VITALS: BP 178/84; PULSE 82; RESP 18; TEMP 97.9; O2SAT 95
[2023-12-14] VITALS (9 sets, daily range): BP systolic 132–191; BP diastolic 73–94; PULSE 67–100; RESP 16–21; TEMP 97–98.3; O2SAT 94–98
[2023-12-14] MEDS ORDERED: hydrALAZINE HCL 20 MG/ML VL IV PRN (01:00)
[2023-12-14] MEDS ORDERED: DEXTROSE (50%) 50ML SYRG IV PRN (11:45)
[2023-12-14] MEDS ORDERED: ACETAMINOPHEN 325 MG TAB PO PRN (11:45)
[2023-12-14] MEDS: InsuLIN REG 1unit/0.01ml Soln (100units/ml) SC SCH (12:00)
[2023-12-14] MEDS: hydrALAZINE HCL 20 MG/ML VL IV PRN (12:53)
[2023-12-14] MEDS: POTASSIUM CHL 20MEQ/100ML 100 ML IV ONE (12:58)
[2023-12-14] MEDS: ACCU-CHEK COMFORT CURVE STRIP VI SCH (12:58)
[2023-12-14] MEDS: POTASSIUM EFFERVESENT TAB 25 MEQ PO ONE (14:59)
[2023-12-14] MEDS: GABAPENTIN 300 MG CAP PO SCH (21:04)
[2023-12-14] MEDS: ONDANSETRON HCL 4 MG/2 ML VIAL IV PRN (22:43)
[2023-12-15] VITALS (8 sets, daily range): BP systolic 100–161; BP diastolic 59–90; PULSE 62–100; RESP 14–95; TEMP 97–98.5; O2SAT 90–98
[2023-12-15 11:04] LABS: Chloride 105 mmol/L (98-107); Potassium 3.7 mmol/L (3.5-5.1); Sodium 138 mmol/L (136-145)
[2023-12-15 11:05] LABS: Anion Gap 5 (5-15); Calcium 9.1 mg/dL (8.5-10.1); Carbon Dioxide 28 mmol/L (20-30)
[2023-12-15 11:10] LABS: BUN/Creatinine Ratio 13.3 (10.0-20.0); Blood Urea Nitrogen 12 mg/dL (9-23); Glucose 175 mg/dL (74-106); Triglycerides 78 mg/dL (< 150)
[2023-12-15 11:11] LABS: LDL Cholesterol 73 mg/dL (< 100)
[2023-12-15 11:12] LABS: Cholesterol 144 mg/dL (< 200); HDL Cholesterol 50 mg/dL (40-59)
[2023-12-16] VITALS (8 sets, daily range): BP systolic 131–152; BP diastolic 73–88; PULSE 75–89; RESP 17–20; TEMP 97.8–98.6; O2SAT 92–98
[2023-12-17] VITALS (8 sets, daily range): BP systolic 99–159; BP diastolic 63–82; PULSE 71–90; RESP 16–20; TEMP 97.4–98.1; O2SAT 94–97
[2023-12-18 01:00] VITALS: BP 146/69; PULSE 84; RESP 18; TEMP 97.8; O2SAT 94
[2023-12-18 05:00] VITALS: BP 154/85; PULSE 81; RESP 18; TEMP 98; O2SAT 98
[2023-12-18 08:27] VITALS: BP 164/82; PULSE 78; RESP 20; TEMP 97.6; O2SAT 95
[2023-12-18 13:04] VITALS: BP 117/81; PULSE 78; RESP 20; TEMP 97.8; O2SAT 95
== END 2023-12-18 16:33 | DRG 948 ==
LOC: EDBD 15:51 → ER 15:51 → TELE 18:05 → UNDOADMIN 18:05 → TELE 19:58 → TELE-WESTW 22:39 → WEST WING 12-18 03:00
PROVIDERS: ADMIT Internal Medicine Geriatric Medicine; ATTEND Internal Medicine Geriatric Medicine
DX: R53.1 Weakness (principal); I69.351 Hemiplegia and hemiparesis following cerebral infarction affecting right dominant side; E87.6 Hypokalemia; I10 Essential (primary) hypertension; E11.9 Type 2 diabetes mellitus without complications; E78.5 Hyperlipidemia, unspecified; G90.8 Other disorders of autonomic nervous system; Z88.0 Allergy status to penicillin; Z90.49 Acquired absence of other specified parts of digestive tract; Z83.3 Family history of diabetes mellitus; Z79.4 Long term (current) use of insulin
CPT/HCPCS: 36415; 70450; 70551; 71045; 80048; 80053; 80061; 82962; 84484; 85025; 92610; 93005; 97110; 97116; 97163; 97530; G0378; J2405; J3480; J3490

== ENCOUNTER 2024-04-19 16:55 | Emergency (ER) | payer OTHER, MEDICAID ==
[~2024-04-19] VITALS: Ht 167.6 cm; Wt 73.0 kg
[~2024-04-19 16:55] MED LIST changes: -LEVO750T40 PO
[2024-04-19 17:13] VITALS: BP 134/81; PULSE 76; RESP 16; O2SAT 94
[2024-04-19 19:25] LABS: Basophils # (auto) 0.1 10 ^3/uL (0-0.2); Basophils % (auto) 1.7 % (0.0-2.0); Eosinophils # (auto) 0.2 10 ^3/uL (0-0.8); Eosinophils % (auto) 4.2 % (0.0-7.0); Hematocrit 35.9 % (36.0-46.0); Hemoglobin 12.1 g/dL (12.2-16.2); Lymphocytes % (auto) 34.6 % (10.0-50.0); Mean Corpuscular Hemoglobin 27.8 pg (28.0-32.0); Mean Corpuscular Hgb Conc. 33.7 g/dL (32.0-36.0); Mean Corpuscular Volume 82.6 fL (80.0-100.0); Monocytes # (auto) 0.4 10 ^3/uL (0-1.3); Monocytes % (auto) 6.7 % (0.0-12.0); Neutrophils # (auto) 3.1 10 ^3/uL (1.6-8.6); Neutrophils % (auto) 52.8 % (37.0-80.0); Nucleated Red Blood Cells % 0.1 %; Platelet Count (auto) 153 10^3/uL (140-450); Red Blood Cells 4.34 10^6/uL (4.0-5.20); Red Cell Distribution Width 13.4 % (11.8-14.3); White Blood Cell 5.8 10^3/uL (4.4-10.8)
[2024-04-19 19:43] LABS: Alanine Aminotransferase 13 U/L (7-40); Albumin 4.3 g/dL (3.2-4.8); Alkaline Phosphatase 95 U/L (46-116); Anion Gap 7 (5-15); Aspartate Aminotransferase 13 U/L (13-40); BUN/Creatinine Ratio 22.1 (10.0-20.0); Blood Urea Nitrogen 21 mg/dL (9-23); Calcium 9.5 mg/dL (8.7-10.4); Carbon Dioxide 25 mmol/L (20-30); Chloride 107 mmol/L (98-107); Glucose 110 mg/dL (74-106); Potassium 3.9 mmol/L (3.5-5.1); Sodium 139 mmol/L (136-145)
[2024-04-19 19:44] LABS: Bilirubin, Total 0.9 mg/dL (0.2-1.0); Total Protein 7.3 g/dL (5.7-8.2)
[2024-04-19] MEDS: SODIUM CHLORIDE 0.9% 1,000 ML IV ONE (20:15)
== END 2024-04-19 23:46 | disposition left against medical advice (07) ==
LOC: EDBD 16:55 → ER 16:55 → EDUNIT# 16:55 → ER 23:46
DX: R42 Dizziness and giddiness (principal); R53.1 Weakness; E86.0 Dehydration; D32.9 Benign neoplasm of meninges, unspecified; E11.9 Type 2 diabetes mellitus without complications; E78.5 Hyperlipidemia, unspecified; I10 Essential (primary) hypertension; Z86.73 Personal history of transient ischemic attack (TIA), and cerebral infarction without residual deficits; Z90.49 Acquired absence of other specified parts of digestive tract; Z90.89 Acquired absence of other organs
CPT/HCPCS: 36415; 70450; 71045; 80053; 84484; 85025